=== PATIENT | male | born 1945 | race Caucasian/White ===

== ENCOUNTER 2016-09-21 04:20 | Emergency (ER) | payer MEDICAID, MEDICARE ==
[2016-09-21] MEDS ORDERED: Albuterol/Ipratropium NEB.SOL* Albuterol 2.5 MG/Ipratropium 0.5 MG 3 ML INH ONE (04:44)
[2016-09-21] MEDS ORDERED: methylPREDNISolone 125 MG* 2 ML VIAL IV ONE (04:44)
--- NOTE | 2016-09-21 05:22 | ED ---
Giovani Kam Adam, scribed for Bobby Tucker MD on 09/21/16 at 0441 . Respiratory - HPI Summary HPI Summary: Pt is a 71 year old male presenting with a worsening cough. He states that he has had a cough for the past 3 days which is worse at night. It produces some sputum and it has been causing him to have a sore throat and rib pain. Pt has a nebulizer at home but he has not been using it. He states that he has not used his Breo for the past few days. He has not taken any cough medicine. He denies fever. Pt quit smoking yesterday; he had been smoking approximately 5 cigarettes per week. PMHx includes COPD, HTN, and CAD. - History of Current Complaint Chief Complaint: EDUpperRespComplaint Stated Complaint: COUGH/DIFF BREATHING Hx Obtained From: Patient Onset/Duration: Gradual Onset, Lasting Hours, Still Present Timing: Constant Initial Severity: Moderate Current Severity: Moderate Pain Intensity: 3 Character: Cough (Productive) Sputum Amount: Small Aggravating Factor(s): Nothing Alleviating Factor(s): Nothing Associated Signs and Symptoms: SOB, Chest Pain with Cough, Dyspnea - Allergy/Home Medications Allergies/Adverse Reactions: Allergies Allergy/AdvReac Type Severity Reaction Status Date / Time Zolpidem AdvReac Intermediate Hallucinati Verified 11/06/15 10:23 ons PMH/Surg Hx/FS Hx/Imm Hx Cardiovascular History: Reports: Hx Coronary Artery Disease, Hx Hypertension, Hx Pacemaker/ICD, Other Cardiovascular Problems/Disorders - Ischemia of heart- chronic Respiratory History: Reports: Hx Chronic Obstructive Pulmonary Disease (COPD), Hx Sleep Apnea - HX OF, Other Respiratory Problems/Disorders - COPD GI History: Reports: Hx Gastroesophageal Reflux Disease, Other GI Disorders - RECENT BOWEL SURGERY FOR POLYPS Sensory History: Reports: Hx Cataracts - BILATERAL, Hx Contacts or Glasses - OPTIC ATROPHY BILAT, Hx Glaucoma - BILATERAL, Hx Legally Blind, Hx Macular Degeneration - light sensitive, wears sunglasses most of time, Hx Vision Problem , Hx Hearing Problem Denies: Hx Hearing Aid Opthamlomology History: Reports: Hx Cataracts - BILATERAL, Hx Contacts or Glasses - OPTIC ATROPHY BILAT, Hx Glaucoma - BILATERAL, Hx Legally Blind, Hx Macular Degeneration - light sensitive, wears sunglasses most of time, Hx Vision Problem Neurological History: Reports: Hx Seizures - new onset today 12/22, Other Neuro Impairments/Disorders - alcoholic withdrawl/confusion Psychiatric History: Reports: Hx Anxiety, Hx Depression, Hx Substance Abuse - tobacco, alcohol - Surgical History Surgery Procedure, Year, and Place: Heart cath @ [facility] 10-15-98, Appendectomy, 13 polyps removed. cabg(3 vessel with saphenous vein graft on 09/09/14). cataracts 09/2015 Hx Anesthesia Reactions: No - Immunization History Date of Tetanus Vaccine: None, and doesn't want any Date of Influenza Vaccine: 03/30 Infectious Disease History: No Infectious Disease History: Denies: History Other Infectious Disease, Traveled Outside the [place] in Last 30 Days - Family History Known Family History: Positive: Other - Negative: malignant hyperthermia, anesthesia reaction - Social History Occupation: Disabled Lives: With Family - Male friend Alcohol Use: None Hx Substance Use: No Substance Use Type: Reports: None Hx Tobacco Use: Yes - PREVIOUS Smoking Status (MU): Light Every Day Tobacco Smoker Type: Cigars Amount Used/How Often: 3 a day Have You Smoked in the Last Year: Yes Review of Systems Positive: Sore Throat Positive: Chest Pain - Rib pain associated with cough Positive: Shortness Of Breath, Cough Positive: Myalgia All Other Systems Reviewed And Are Negative: Yes Physical Exam Triage Information Reviewed: Yes Vital Signs On Initial Exam: Initial Vitals Temp Pulse Resp BP Pulse Ox 98.6 F 74 21 152/71 95 09/21/16 04:27 09/21/16 04:27 09/21/16 04:27 09/21/16 04:27 09/21/16 04:27 Vital Signs Reviewed: Yes Appearance: Positive: Well-Appearing, No Pain Distress, Obese Skin: Positive: Warm Eyes: Positive: NOÉ ENT: Positive: Hearing grossly normal Neck: Positive: Supple Respiratory/Lung Sounds: Positive: Breath Sounds Present, Wheezes - bilat diffuse with prolonged expiration Cardiovascular: Positive: RRR Abdomen Description: Positive: Nontender, Soft Bowel Sounds: Positive: Present Musculoskeletal: Positive: Strength/ROM Intact Neurological: Positive: Sensory/Motor Intact Diagnostics - Vital Signs Vital Signs Temp Pulse Resp BP Pulse Ox 09/21/16 04:27 98.6 F 74 21 152/71 95 - Laboratory Result Diagrams: 09/21/16 05:10 09/21/16 05:10 Lab Statement: Any lab studies that have been ordered have been reviewed, and results considered in the medical decision making process. - Radiology CXR Xray Interpretation: No Acute Changes Radiology Interpretation Completed By: ED Physician - Additional Comments Diagnostic Additional Comments: Influenza A (Rapid) - Negative Influenza B (Rapid) - Negative Re-Evaluation - Re-Evaluation First Eval Change: Improved - much less wheezing, feels better Disposition - Diagnoses Provider Diagnoses: COPD (chronic obstructive pulmonary disease) Discharge - Discharge Plan Condition: Improved Disposition: HOME Prescriptions: Albuterol HFA INHALER* [Ventolin HFA Inhaler*] 2 puff INH Q4H #1 mdi predniSONE TAB* [Deltasone TAB*] 40 mg PO DAILY #8 tab The documentation as recorded by the Giovani ghosh Adam accurately reflects the service I personally performed and the decisions made by me, Bobby Tucker MD.
[2016-09-21 05:31] LABS: Hematocrit 33 % (42-52); Hemoglobin 10.7 g/dl (14.0-18.0); Mean Corpuscular HGB Conc 32 g/dl (31-36); Mean Corpuscular Hemoglobin 24 pg (27-31); Mean Corpuscular Volume 76 fL (80-94); Mean Platelet Volume 8 um3 (7.4-10.4); Red Blood Count 4.41 10^6/ul (4.0-5.4); Red Cell Distribution Width 17 % (10.5-15); White Blood Count 6.2 10^3/ul (3.5-10.8)
[2016-09-21 05:50] LABS: BUN/Creatinine Ratio 15.6 (8-20); EGFR African American 70.8 (>60); EGFR Non-African American 55.1 (>60); Globulin 2.8 g/dL (2-4); Potassium 3.8 mmol/L (3.5-5.0); Total Bilirubin 0.6 mg/dL (0.2-1.0); Total Protein 6.8 g/dL (6.4-8.9)
[2016-09-21 06:49] VITALS: BP 142/63
--- NOTE | 2016-09-21 08:13 | RAD ---
INDICATION: 2 days significant coughing with associated rib pain and difficulty breathing. Sore throat, body aches. COMPARISON: May 17, 2016 CT chest. TECHNIQUE: Dual energy PA and routine lateral views of the chest were obtained. REPORT: Elevated lung volumes with both minimal prominence and significant rarefaction of interstitial markings. No alveolar consolidation, focal pulmonary lesion, pleural effusion, pneumothorax. Median sternotomy wires, mediastinal vascular clips, RIGHT atrial and RIGHT ventricular level pacemaker leads. Unremarkable central pulmonary vasculature and mediastinal contours. No rib fracture evident. IMPRESSION: Stigmata of chronic obstructive lung disease and emphysema. No acute cardiopulmonary process evident.
== END 2016-09-21 06:53 | disposition home or self-care (01) ==
LOC: ED 04:20
DX: J44.9 Chronic obstructive pulmonary disease, unspecified (principal); R06.02 Shortness of breath; R07.9 Chest pain, unspecified; R05 Cough; R06.00 Dyspnea, unspecified; F17.210 Nicotine dependence, cigarettes, uncomplicated
CPT/HCPCS: 36415; 71020; 80053; 85025; 87502; 94640; 94760; 99282; A9270-GY; J2930

== ENCOUNTER 2016-11-30 18:57 | Observation (INO) | payer MEDICAID, MEDICARE ==
[2016-11-30 19:55] LABS: Hematocrit 32 % (42-52); Hemoglobin 10.1 g/dl (14.0-18.0); Mean Corpuscular HGB Conc 31 g/dl (31-36); Mean Corpuscular Hemoglobin 23 pg (27-31); Mean Corpuscular Volume 73 fL (80-94); Mean Platelet Volume 8 um3 (7.4-10.4); Red Blood Count 4.41 10^6/ul (4.0-5.4); Red Cell Distribution Width 20 % (10.5-15); White Blood Count 8.5 10^3/ul (3.5-10.8)
[2016-11-30 20:04] LABS: Comments Flag Yes
[2016-11-30 20:05] LABS: Add Diff/Slide Review? Slide Review Added
--- NOTE | 2016-11-30 20:09 | RAD ---
Indication: Cough, shortness of breath. 2 views of the chest including dual energy views of the chest demonstrate no mediastinal shift. Mild cardiomegaly is noted. Lung merritt are clear. Patient is status post transsternal thoracotomy. Pacemaker leads are in place. When compared to previous exam of September 21, 2016 no significant change is noted. IMPRESSION: No active cardiopulmonary disease is noted.
[2016-11-30 20:11] LABS: ALT 20 U/L (7-52); AST 17 U/L (13-39); Albumin 3.8 g/dL (3.2-5.2); Alkaline Phosphatase 80 U/L (34-104); Anion Gap 9 mmol/L (2-11); BUN/Creatinine Ratio 9.5 (8-20); Blood Urea Nitrogen 16 mg/dL (6-24); CO2 Carbon Dioxide 28 mmol/L (22-32); Chloride 100 mmol/L (101-111); Creatine Kinase 132 U/L (10-223); EGFR African American 51.4 (>60); Globulin 3.3 g/dL (2-4); Glucose 115 mg/dL (70-100); Potassium 4.1 mmol/L (3.5-5.0); Sodium 137 mmol/L (133-145); Total Protein 7.1 g/dL (6.4-8.9)
[2016-11-30 20:13] LABS: Troponin I 0.02 ng/mL (<0.04)
[2016-11-30] MEDS ORDERED: Albuterol 2.5 MG/3 ML NEB.SOL* (0.083%) INH ONE (20:28)
[2016-11-30] MEDS ORDERED: methylPREDNISolone 125 MG* 2 ML VIAL IV ONE (20:28)
[2016-11-30 21:30] LABS: C Reactive Protein 60.18 mg/L (< 5.00)
[2016-11-30 21:50] LABS: PCO2 Arterial 30 mmHg (35-45)
--- NOTE | 2016-12-01 00:44 | HP ---
H&P (Free Text) History and Physical: PCP: Rafat Miranda MD Pulmonology: Flako Hopkins MD Date/Time of Evaluation: 12/01/2016 0010 CC: SOB, cough HPI: Mr Bishop is a 71YO male HX COPD followed by Flako Hopkins MD pulmonology who reports 3 days of gradually worsening SOB and chest tightness associated with cough producing brown sputum. He reports subjective F/C, but no N/V/D, chest pain, LE swelling, or other issues. He continues to smoke 1.5-2 PPD cigarettes. Exertion makes his SOB worse and rest & albuterol makes it better. PMedHx CAD/MD/stent/3vCABG paroxysmal AFIB PAOD/RLE stent COPD HTN HLD legally blind OS gout microcytic anemia alcoholism in remission with HX delirium tremens requiring intubation tobacco use disorder Ambulatory Orders Atenolol TAB* [Tenormin TAB* 25 MG] 12.5 mg PO EVERY OTHER DAY 04/07/14 Hydrochlorothiazide TAB* [Hydrodiuril TAB*] 25 mg PO QAM 04/07/14 Indomethacin CAP* [Indocin CAP*] 1 - 2 tab PO TID PRN 04/07/14 Multiple Vitamin [Multivitamins] 1 tab PO QAM 04/07/14 amLODIPine TAB* [Norvasc 5 mg TAB*] 5 mg PO QAM 04/07/14 Budesonide-Formoterol Fumarate [Symbicort 80-4.5 Mcg/Act] 1 puff INH BID Omeprazole CAP* [Prilosec CAP*] 20 mg PO QAM 08/13/14 Amiodarone HCl [Cordarone] 100 mg PO QAM 11/29/14 Lisinopril [Prinivil] 10 mg PO QAM 11/29/14 Paroxetine HCl [Paxil] 20 mg PO QAM 11/29/14 Rivaroxaban TAB(*) [Xarelto (NF)] 15 mg PO 1700 11/29/14 Simvastatin [Zocor] 10 mg PO BEDTIME 11/29/14 Ezetimibe TAB* [Zetia TAB*] 10 mg PO BEDTIME 12/22/14 Nitroglycerin TAB 0.3 MG* 0.3 mg SL Q5M PRN 05/04/15 Brimonidine P 0.15%(NF) [Alphagan P 0.15%(NF)] 1 drop BOTH EYES BID 09/25/15 Dorzolamide 2% OPTH (NF) [Trusopt 2% OPTH (NF)] 1 drop BOTH EYES BID 09/25/15 Travoprost Z 0.004% OPHTH (NF) [Travatan Z 0.004% OPTH (NF)] 1 drop BOTH EYES BEDTIME 09/25/15 Acetaminophen W/ Codeine [Acetaminophen/Codeine 300-15 mg] 1 tab PO Q4HR #20 tab MDD 6 11/06/15 Albuterol HFA INHALER* [Ventolin HFA Inhaler*] 2 puff INH Q4H #1 mdi 09/21/16 Allergies Zolpidem Adverse Reaction (Intermediate, Verified 11/06/15 10:23) Hallucinations Occurred in hospital PSurgHx pacer placement 3vCABG cardiac stent x1 to LAD R hemicolectomy for large benign cecal polyp open appendectomy for rupture RLE stent SocHx: 1.5-2 PPD cigarettes, alcoholism in remission w/ HX DTs requiring intubation, denies recreational drugs; homosexual male lives with his male partner; full code status FamHx: positive for CAD, HTN, HLD, lung CA ROS: as above, otherwise reviewed and all were negative Constitutional: NAD, normally developed, obese white male vitals: Vital Signs Temp 38.2 C 11/30/16 21:16 Pulse 102 11/30/16 21:48 Resp 15 11/30/16 21:48 BP 118/66 11/30/16 21:30 Pulse Ox 98 11/30/16 21:48 Intake & Output 11/30/16 11/30/16 12/01/16 11:59 23:59 11:59 Weight 99.79 kg HEENM: atraumatic; sclera/conjunctiva: ; hearing: clinically intact; oropharynx : clear, mucosa moist Neck: soft tissue: non-tender; thyroid: normal Pulmonary: scant end-inspiratory and moderate mid- to end-expiratory wheeze, fair aeration, no accessory muscle use CV: TR/RR, normal S1S2, no carotid bruit, no jugular venous distention, 2+ B DP/ PT, no edema Abdominal: soft, non-distended, non-tender, no rebound/guarding/rigidity, normoactive bowel sounds, no hepatosplenomegaly or masses, no costovertebral angle tenderness Musculoskeletal: general: grossly intact; gait: dinorah Integumental: normal appearance and texture of exposed skin Psychiatric orientation: AA&O to PPS affect: mildly anxious mood: cooperative eye contact: good content: reliable responses: timely insight: fair Testing: Lab Results 11/30/16 11/30/16 11/30/16 Range/Units 19:45 19:45 19:45 WBC 8.5 (3.5-10.8) 10^3/ul RBC 4.41 (4.0-5.4) 10^6/ul Hgb 10.1 L (14.0-18.0) g/dl Hct 32 L (42-52) % MCV 73 L (80-94) fL MCH 23 L (27-31) pg MCHC 31 (31-36) g/dl RDW 20 H (10.5-15) % Plt Count 219 (150-450) 10^3/ul MPV 8 (7.4-10.4) um3 Neut % (Auto) 73.9 (38-83) % Lymph % (Auto) 11.2 L (25-47) % Storey % (Auto) 13.8 H (1-9) % Eos % (Auto) 0.6 (0-6) % Baso % (Auto) 0.5 (0-2) % Absolute Neuts (auto) 6.3 (1.5-7.7) 10^3/ul Absolute Lymphs (auto) 1.0 (1.0-4.8) 10^3/ul Absolute Monos (auto) 1.2 H (0-0.8) 10^3/ul Absolute Eos (auto) 0 (0-0.6) 10^3/ul Absolute Basos (auto) 0 (0-0.2) 10^3/ul Absolute Nucleated RBC 0 10^3/ul Nucleated RBC % 0 INR (Anticoag Therapy) (0.89-1.11) D-Dimer, Quantitative (Less Than 230) ng/mL Patient Temperature ABG pH (7.35-7.45) ABG pCO2 (35-45) mmHg ABG pO2 (80-100) mmHg ABG HCO3 (19-31) mmol/L ABG O2 Saturation (95-98) % ABG Base Excess (-2.0-2.0) Respiration Rate O2 Delivery Device Ventilator Type Vent Mode FiO2 Inspiratory Time PEEP Pressure Support Pressure Control EPAP IPAP BiPAP Sodium 137 (133-145) mmol/L Potassium 4.1 (3.5-5.0) mmol/L Chloride 100 L (101-111) mmol/L Carbon Dioxide 28 (22-32) mmol/L Anion Gap 9 (2-11) mmol/L BUN 16 (6-24) mg/dL Creatinine 1.69 H (0.67-1.17) mg/dL Est GFR ( Amer) 51.4 (>60) Est GFR (Non-Af Amer) 40.0 (>60) BUN/Creatinine Ratio 9.5 (8-20) Glucose 115 H (70-100) mg/dL Lactic Acid 3.6 H* (0.5-2.0) mmol/L Calcium 9.0 (8.6-10.3) mg/dL Total Bilirubin 0.80 (0.2-1.0) mg/dL AST 17 (13-39) U/L ALT 20 (7-52) U/L Alkaline Phosphatase 80 (34-104) U/L Total Creatine Kinase 132 (10-223) U/L Troponin I 0.02 (<0.04) ng/mL C-Reactive Protein 60.18 H (< 5.00) mg/L B-Natriuretic Peptide ( - 100) pg/mL Total Protein 7.1 (6.4-8.9) g/dL Albumin 3.8 (3.2-5.2) g/dL Globulin 3.3 (2-4) g/dL Albumin/Globulin Ratio 1.2 (1-3) Influenza A (Rapid) (Negative) Influenza B (Rapid) (Negative) 11/30/16 11/30/16 11/30/16 Range/Units 19:45 19:45 20:39 WBC (3.5-10.8) 10^3/ul RBC (4.0-5.4) 10^6/ul Hgb (14.0-18.0) g/dl Hct (42-52) % MCV (80-94) fL MCH (27-31) pg MCHC (31-36) g/dl RDW (10.5-15) % Plt Count (150-450) 10^3/ul MPV (7.4-10.4) um3 Neut % (Auto) (38-83) % Lymph % (Auto) (25-47) % Storey % (Auto) (1-9) % Eos % (Auto) (0-6) % Baso % (Auto) (0-2) % Absolute Neuts (auto) (1.5-7.7) 10^3/ul Absolute Lymphs (auto) (1.0-4.8) 10^3/ul Absolute Monos (auto) (0-0.8) 10^3/ul Absolute Eos (auto) (0-0.6) 10^3/ul Absolute Basos (auto) (0-0.2) 10^3/ul Absolute Nucleated RBC 10^3/ul Nucleated RBC % INR (Anticoag Therapy) 1.43 H (0.89-1.11) D-Dimer, Quantitative < 200 (Less Than 230) ng/mL Patient Temperature ABG pH (7.35-7.45) ABG pCO2 (35-45) mmHg ABG pO2 (80-100) mmHg ABG HCO3 (19-31) mmol/L ABG O2 Saturation (95-98) % ABG Base Excess (-2.0-2.0) Respiration Rate O2 Delivery Device Ventilator Type Vent Mode FiO2 Inspiratory Time PEEP Pressure Support Pressure Control EPAP IPAP BiPAP Sodium (133-145) mmol/L Potassium (3.5-5.0) mmol/L Chloride (101-111) mmol/L Carbon Dioxide (22-32) mmol/L Anion Gap (2-11) mmol/L BUN (6-24) mg/dL Creatinine (0.67-1.17) mg/dL Est GFR ( Amer) (>60) Est GFR (Non-Af Amer) (>60) BUN/Creatinine Ratio (8-20) Glucose (70-100) mg/dL Lactic Acid (0.5-2.0) mmol/L Calcium (8.6-10.3) mg/dL Total Bilirubin (0.2-1.0) mg/dL AST (13-39) U/L ALT (7-52) U/L Alkaline Phosphatase (34-104) U/L Total Creatine Kinase (10-223) U/L Troponin I (<0.04) ng/mL C-Reactive Protein (< 5.00) mg/L B-Natriuretic Peptide 270 H ( - 100) pg/mL Total Protein (6.4-8.9) g/dL Albumin (3.2-5.2) g/dL Globulin (2-4) g/dL Albumin/Globulin Ratio (1-3) Influenza A (Rapid) Negative (Negative) Influenza B (Rapid) Negative (Negative) 11/30/16 Range/Units 21:40 WBC (3.5-10.8) 10^3/ul RBC (4.0-5.4) 10^6/ul Hgb (14.0-18.0) g/dl Hct (42-52) % MCV (80-94) fL MCH (27-31) pg MCHC (31-36) g/dl RDW (10.5-15) % Plt Count (150-450) 10^3/ul MPV (7.4-10.4) um3 Neut % (Auto) (38-83) % Lymph % (Auto) (25-47) % Storey % (Auto) (1-9) % Eos % (Auto) (0-6) % Baso % (Auto) (0-2) % Absolute Neuts (auto) (1.5-7.7) 10^3/ul Absolute Lymphs (auto) (1.0-4.8) 10^3/ul Absolute Monos (auto) (0-0.8) 10^3/ul Absolute Eos (auto) (0-0.6) 10^3/ul Absolute Basos (auto) (0-0.2) 10^3/ul Absolute Nucleated RBC 10^3/ul Nucleated RBC % INR (Anticoag Therapy) (0.89-1.11) D-Dimer, Quantitative (Less Than 230) ng/mL Patient Temperature Not Reportable ABG pH 7.53 H (7.35-7.45) ABG pCO2 30 L (35-45) mmHg ABG pO2 70 L (80-100) mmHg ABG HCO3 27.0 (19-31) mmol/L ABG O2 Saturation 92.9 L (95-98) % ABG Base Excess 2.7 H (-2.0-2.0) Respiration Rate Not Reportable O2 Delivery Device 2l nasal cannula Ventilator Type Not Reportable Vent Mode Not Reportable FiO2 Not Reportable Inspiratory Time Not Reportable PEEP Not Reportable Pressure Support Not Reportable Pressure Control Not Reportable EPAP Not Reportable IPAP Not Reportable BiPAP Not Reportable Sodium (133-145) mmol/L Potassium (3.5-5.0) mmol/L Chloride (101-111) mmol/L Carbon Dioxide (22-32) mmol/L Anion Gap (2-11) mmol/L BUN (6-24) mg/dL Creatinine (0.67-1.17) mg/dL Est GFR ( Amer) (>60) Est GFR (Non-Af Amer) (>60) BUN/Creatinine Ratio (8-20) Glucose (70-100) mg/dL Lactic Acid (0.5-2.0) mmol/L Calcium (8.6-10.3) mg/dL Total Bilirubin (0.2-1.0) mg/dL AST (13-39) U/L ALT (7-52) U/L Alkaline Phosphatase (34-104) U/L Total Creatine Kinase (10-223) U/L Troponin I (<0.04) ng/mL C-Reactive Protein (< 5.00) mg/L B-Natriuretic Peptide ( - 100) pg/mL Total Protein (6.4-8.9) g/dL Albumin (3.2-5.2) g/dL Globulin (2-4) g/dL Albumin/Globulin Ratio (1-3) Influenza A (Rapid) (Negative) Influenza B (Rapid) (Negative) ECG, personally reviewed: sinus LBBB rate 61 CXR, personally reviewed: IMPRESSION: No active cardiopulmonary disease is noted. Impression: 71M presenting with COPD exacerbation DIAGNOSIS & PLAN Primary febrile COPD exacerbation : albuterol nebs : mometasone/formoterol : tiotropium : IV methylpredisolone : IV azithromycin & ceftriaxone : guaifenesin : incentive spirometry : blood & sputum CXs : check urine Legionella & S pneumo antigens : supplemental oxygen : smoking cessation : supportive care Secondary CAD/MD/stent/3vCABG : aspirin paroxysmal AFIB : continue atenolol, amiodarone, & rivaroxaban PAOD/RLE stent : aspirin HTN : continue lisinopril, atenolol, & amlodipine : hold HCTZ HLD : continue simvastatin & ezetimibe microcytic anemia : check anemia labs GERD : continue omeprazole anxiety : continue paroxetine Admission Rational: inpatient for febrile COPD exacerbation not anticipated to adequately improve w/i 48h to allow for discharge DVTp: rivaroxaban Code Status: full HCP: domestic partner, Branden Suggs
[2016-12-01] MEDS ORDERED: Acetaminophen TAB* 325 MG PO PRN (02:01)
[2016-12-01] MEDS ORDERED: Albuterol 2.5 MG/3 ML NEB.SOL* (0.083%) INH PRN ×2 (02:01→09:15)
[2016-12-01] MEDS ORDERED: Melatonin (NF) 3 MG TAB PO PRN (02:03)
[2016-12-01] MEDS ORDERED: Nicotine Inhaler* 10 MG AMP INH PRN (02:03)
[2016-12-01] MEDS ORDERED: oxyCODONE TAB* 5 MG TAB PO PRN (02:03)
[2016-12-01] MEDS ORDERED: Ondansetron INJ* 2 MG/ML VIAL IV PRN (02:03)
[2016-12-01] MEDS ORDERED: Azithromycin IV(*) 500 MG in NS 0.9% 250 ML* 250 ML IVPB SCH (03:00)
[2016-12-01 03:17] LABS: Folate > 20.00 ng/mL (>3.99)
[2016-12-01 03:18] LABS: Vitamin B12 290 pg/mL (180-914)
[2016-12-01 03:19] LABS: Corrected Retic Count 2.1 % (0.5-1.5); Immature Retic Fraction 0.52; Maturation Factor Retic 1.5
[2016-12-01] MEDS: NS 0.9% 1000 ML* 1,000 ML IV SCH ×3 (03:19→21:46)
[2016-12-01] MEDS: cefTRIAXone VIAL(*) 1,000 MG in NS 0.9% 50 ML* 50 ML IVPB SCH (03:19)
[2016-12-01 03:21] LABS: Ferritin < 10.0 ng/mL (24-336)
[2016-12-01] MEDS: DOXYcycline CAP(*) 100 MG PO SCH ×3 (03:21→20:24)
[2016-12-01 03:42] LABS: Iron 31 ug/dL (50-212); Total Iron Binding Capacity 479 mcg/dL (250-450); Transferrin 342 mg/dL (203-362)
[2016-12-01 05:32] LABS: Hematocrit 32 % (42-52); Mean Corpuscular HGB Conc 31 g/dl (31-36); Mean Corpuscular Hemoglobin 23 pg (27-31); Mean Platelet Volume 8 um3 (7.4-10.4); Red Blood Count 4.34 10^6/ul (4.0-5.4); Red Cell Distribution Width 20 % (10.5-15); White Blood Count 6.8 10^3/ul (3.5-10.8)
[2016-12-01 05:38] LABS: Comments Flag Yes; Mean Corpuscular Volume 73 fL (80-94)
[2016-12-01 05:49] LABS: BUN/Creatinine Ratio 11.9 (8-20); Calcium 8.6 mg/dL (8.6-10.3); EGFR African American 67.2 (>60); EGFR Non-African American 52.3 (>60); Potassium 3.4 mmol/L (3.5-5.0)
[2016-12-01] MEDS ORDERED: NS 0.9% 1000 ML* 1,000 ML IV SCH (06:15)
[2016-12-01] MEDS ORDERED: Albuterol 2.5 MG/3 ML NEB.SOL* (0.083%) INH SCH (07:00)
[2016-12-01] MEDS: Mometasone/Formoter 200/5 MDI INH SCH ×2 (07:41→20:48)
[2016-12-01] MEDS: Tiotropium CAP.INH* CAP.INH/18 MCG INH SCH (07:42)
[2016-12-01] MEDS ORDERED: Atenolol TAB* 25 MG PO SCH (09:00)
[2016-12-01] MEDS ORDERED: Spiriva Inhaler DEVICE* 1 EACH DEVICE INH ONE (09:00)
[2016-12-01] MEDS: Omeprazole CAP* 20 MG PO SCH (09:16)
[2016-12-01] MEDS: guaiFENesin ER TAB 600 MG PO SCH ×2 (09:16→20:24)
[2016-12-01] MEDS: PARoxetine HCL TAB* 20 MG PO SCH (09:17)
[2016-12-01] MEDS: Amiodarone TAB* 200 MG PO SCH (09:19)
[2016-12-01] MEDS: Lisinopril TAB* 10 MG PO SCH (09:20)
[2016-12-01] MEDS: Docusate CAP* 100 MG PO SCH ×2 (09:20→20:24)
[2016-12-01] MEDS: amLODIPine TAB* 5 MG PO SCH (09:20)
[2016-12-01] MEDS: Aspirin EC Low Dose* 81 MG TAB.EC PO SCH (09:31)
[2016-12-01] MEDS: Rivaroxaban TAB(*) 20 MG TAB PO SCH (09:41)
--- NOTE | 2016-12-01 11:03 | ED ---
Angie Kam Rebecca, scribed for Marybeth Matute MD on 11/30/16 at 2025 . Respiratory - HPI Summary HPI Summary: Pt is a 71 y/o M who presents to ED accompanied by his partner with a CC of respiratory distress. C/o productive cough, SOB and painful lungs, stating "my lungs hurt." Cough began suddenly 3 days ago and has been constant since onset, with green and brown sputum. SOB began 3 days ago as well, characterized as dyspnea at exertion, present after walking a short distance. Pain in lungs is ranked 9/10. All sx aggravated by exertion, alleviated by nothing. Denies CP, fever. Pt has been using his partner's O2 per Os at home [employer]. PSHx CABG (2014), pacemaker implantation. PMHx DC. PSHx smoking (1.5 PPD - quit 2 days ago). Received a flu shot this year. Sees Dr. Miranda and Dr. Hopkins. - History of Current Complaint Chief Complaint: EDGeneral Stated Complaint: BODY ACHES Time Seen by Provider: 11/30/16 19:36 Hx Obtained From: Patient Onset/Duration: Sudden Onset, Lasting Days - 3 days, Still Present Timing: Constant Initial Severity: Moderate Current Severity: Severe Pain Intensity: 9 Character: Cough (Productive), Dyspnea on Exertion Sputum Amount: Moderate Sputum Color: Green, Brown Aggravating Factor(s): Exertion Alleviating Factor(s): Nothing Associated Signs and Symptoms: SOB - dyspnea at slight exertion - Allergy/Home Medications Allergies/Adverse Reactions: Allergies Allergy/AdvReac Type Severity Reaction Status Date / Time Zolpidem AdvReac Intermediate Hallucinati Verified 11/06/15 10:23 ons PMH/Surg Hx/FS Hx/Imm Hx Cardiovascular History: Reports: Hx Coronary Artery Disease, Hx Hypertension, Hx Pacemaker/ICD, Other Cardiovascular Problems/Disorders Respiratory History: Reports: Hx Chronic Obstructive Pulmonary Disease (COPD), Hx Sleep Apnea GI History: Reports: Hx Gastroesophageal Reflux Disease, Other GI Disorders - RECENT BOWEL SURGERY FOR POLYPS Sensory History: Reports: Hx Cataracts - BILATERAL, Hx Contacts or Glasses - OPTIC ATROPHY BILAT, Hx Glaucoma - BILATERAL, Hx Legally Blind, Hx Macular Degeneration - light sensitive, wears sunglasses most of time, Hx Vision Problem , Hx Hearing Problem Denies: Hx Hearing Aid Opthamlomology History: Reports: Hx Cataracts - BILATERAL, Hx Contacts or Glasses - OPTIC ATROPHY BILAT, Hx Glaucoma - BILATERAL, Hx Legally Blind, Hx Macular Degeneration - light sensitive, wears sunglasses most of time, Hx Vision Problem Neurological History: Reports: Hx Seizures, Other Neuro Impairments/Disorders - alcoholic withdrawl/confusion Psychiatric History: Reports: Hx Anxiety, Hx Depression, Hx Substance Abuse - tobacco, alcohol - Surgical History Surgery Procedure, Year, and Place: Heart cath @ [facility] 10-15-98, Appendectomy, 13 polyps removed. cabg(3 vessel with saphenous vein graft on 09/09/14). cataracts 09/2015 Hx Anesthesia Reactions: No - Immunization History Date of Tetanus Vaccine: None, and doesn't want any Date of Influenza Vaccine: 03/30 Infectious Disease History: Denies: History Other Infectious Disease, Traveled Outside the [place] in Last 30 Days - Family History Known Family History: Positive: Other - Negative: malignant hyperthermia, anesthesia reaction - Social History Alcohol Use: None Alcohol Amount: 5-6 beers a night Hx Substance Use: No Substance Use Type: Reports: None Hx Tobacco Use: Yes - PREVIOUS Smoking Status (MU): Light Every Day Tobacco Smoker Type: Cigars Amount Used/How Often: 3 a day Have You Smoked in the Last Year: Yes Cessation Counseling: Patient Advised to Stop Review of Systems Negative: Fever Negative: Chest Pain Positive: Shortness Of Breath - dyspnea at slight exertion, Cough - productive - green and brown, Other - "painful lungs" - 03/26 Gastrointestinal: Negative Musculoskeletal: Negative Skin: Negative Neurological: Negative Psychological: Normal All Other Systems Reviewed And Are Negative: Yes Physical Exam Triage Information Reviewed: Yes Vital Signs On Initial Exam: Initial Vitals Temp Pulse Resp BP Pulse Ox 99.5 F 92 24 141/74 92 11/30/16 19:07 11/30/16 19:07 11/30/16 19:07 11/30/16 19:07 11/30/16 19:07 Vital Signs Reviewed: Yes Appearance: Positive: No Pain Distress, Well-Nourished, Ill-Appearing - Mild Skin: Positive: Warm, Skin Color Reflects Adequate Perfusion, Dry Eyes: Positive: Conjunctiva Clear ENT: Positive: Normal ENT inspection Neck: Positive: Supple Respiratory/Lung Sounds: Positive: Breath Sounds Present, Decreased Breath Sounds, Rhonchi - Expiratory wheezes throughout, Other - Pacemaker in the LUQ, SOB just sitting up Cardiovascular: Positive: RRR, Other - Pulses normal, brisk capillary refill. Negative: Murmur, Leg Edema Left, Leg Edema Right Abdomen Description: Positive: Nontender, No Organomegaly, Soft Musculoskeletal: Positive: Strength/ROM Intact Neurological: Positive: Alert, Oriented to Person Place, Time, Other - Muscle tone normal Psychiatric: Positive: Normal Diagnostics - Vital Signs Vital Signs Temp Pulse Resp BP Pulse Ox 11/30/16 19:07 99.5 F 92 24 141/74 92 - Laboratory Lab Results: Lab Results 11/30/16 11/30/16 11/30/16 Range/Units 19:45 19:45 19:45 WBC 8.5 (3.5-10.8) 10^3/ul RBC 4.41 (4.0-5.4) 10^6/ul Hgb 10.1 L (14.0-18.0) g/dl Hct 32 L (42-52) % MCV 73 L (80-94) fL MCH 23 L (27-31) pg MCHC 31 (31-36) g/dl RDW 20 H (10.5-15) % Plt Count 219 (150-450) 10^3/ul MPV 8 (7.4-10.4) um3 Neut % (Auto) 73.9 (38-83) % Lymph % (Auto) 11.2 L (25-47) % [place] % (Auto) 13.8 H (1-9) % Eos % (Auto) 0.6 (0-6) % Baso % (Auto) 0.5 (0-2) % Absolute Neuts (auto) 6.3 (1.5-7.7) 10^3/ul Absolute Lymphs (auto) 1.0 (1.0-4.8) 10^3/ul Absolute Monos (auto) 1.2 H (0-0.8) 10^3/ul Absolute Eos (auto) 0 (0-0.6) 10^3/ul Absolute Basos (auto) 0 (0-0.2) 10^3/ul Absolute Nucleated RBC 0 10^3/ul Nucleated RBC % 0 INR (Anticoag Therapy) (0.89-1.11) D-Dimer, Quantitative (Less Than 230) ng/mL Sodium 137 (133-145) mmol/L Potassium 4.1 (3.5-5.0) mmol/L Chloride 100 L (101-111) mmol/L Carbon Dioxide 28 (22-32) mmol/L Anion Gap 9 (2-11) mmol/L BUN 16 (6-24) mg/dL Creatinine 1.69 H (0.67-1.17) mg/dL Est GFR ( Amer) 51.4 (>60) Est GFR (Non-Af Amer) 40.0 (>60) BUN/Creatinine Ratio 9.5 (8-20) Glucose 115 H (70-100) mg/dL Lactic Acid 3.6 H* (0.5-2.0) mmol/L Calcium 9.0 (8.6-10.3) mg/dL Total Bilirubin 0.80 (0.2-1.0) mg/dL AST 17 (13-39) U/L ALT 20 (7-52) U/L Alkaline Phosphatase 80 (34-104) U/L Total Creatine Kinase 132 (10-223) U/L Troponin I 0.02 (<0.04) ng/mL Total Protein 7.1 (6.4-8.9) g/dL Albumin 3.8 (3.2-5.2) g/dL Globulin 3.3 (2-4) g/dL Albumin/Globulin Ratio 1.2 (1-3) / Range/Units 19:45 WBC (3.5-10.8) 10^3/ul RBC (4.0-5.4) 10^6/ul Hgb (14.0-18.0) g/dl Hct (42-52) % MCV (80-94) fL MCH (27-31) pg MCHC (31-36) g/dl RDW (10.5-15) % Plt Count (150-450) 10^3/ul MPV (7.4-10.4) um3 Neut % (Auto) (38-83) % Lymph % (Auto) (25-47) % [place] % (Auto) (1-9) % Eos % (Auto) (0-6) % Baso % (Auto) (0-2) % Absolute Neuts (auto) (1.5-7.7) 10^3/ul Absolute Lymphs (auto) (1.0-4.8) 10^3/ul Absolute Monos (auto) (0-0.8) 10^3/ul Absolute Eos (auto) (0-0.6) 10^3/ul Absolute Basos (auto) (0-0.2) 10^3/ul Absolute Nucleated RBC 10^3/ul Nucleated RBC % INR (Anticoag Therapy) 1.43 H (0.89-1.11) D-Dimer, Quantitative < 200 (Less Than 230) ng/mL Sodium (133-145) mmol/L Potassium (3.5-5.0) mmol/L Chloride (101-111) mmol/L Carbon Dioxide (22-32) mmol/L Anion Gap (2-11) mmol/L BUN (6-24) mg/dL Creatinine (0.67-1.17) mg/dL Est GFR ( Amer) (>60) Est GFR (Non-Af Amer) (>60) BUN/Creatinine Ratio (8-20) Glucose (70-100) mg/dL Lactic Acid (0.5-2.0) mmol/L Calcium (8.6-10.3) mg/dL Total Bilirubin (0.2-1.0) mg/dL AST (13-39) U/L ALT (7-52) U/L Alkaline Phosphatase (34-104) U/L Total Creatine Kinase (10-223) U/L Troponin I (<0.04) ng/mL Total Protein (6.4-8.9) g/dL Albumin (3.2-5.2) g/dL Globulin (2-4) g/dL Albumin/Globulin Ratio (1-3) Result Diagrams: 12/01/16 05:04 12/01/16 05:04 Lab Statement: Any lab studies that have been ordered have been reviewed, and results considered in the medical decision making process. - Radiology CXR Xray Interpretation: No Acute Changes - No active cardiopulmonary disease noted. Radiology Interpretation Completed By: Radiologist - EKG 2027 Cardiac Rate: NL - 90 bpm EKG Rhythm: Sinus Rhythm EKG Interpretation: Normal AV and normal IV conduction time, left axis 5, LBBB EKG Comparison: No Significant Change - no change from EKG on 06/18/2015 Disposition - Course Course Of Treatment: Pt is a 71 y/o M who presents to ED accompanied by his partner c/o productive cough (brown and green), SOB (dyspnea at slight exertion ) and severely painful lungs (9/10) for 3 days. Sx aggravated by exertion, alleviated by nothing. Denies CP, fever. PMHx CAD with DC. PSHx CABG, pacemaker implantation. SHx smoker (1.5 PPD - quit 2 days ago). Pt was counseled on smoking cesation. Pt medications reviewed this visit. Allergies noted. Lactic acid 3.6. BNP 270. CXR reveals no acute findings. Discussed care of pt with Dr. Mora, hospitalist, who accepts pt for admission. Pt will be admitted with a Dx of COPD exacerbation. - Differential Dx - Cardiopulmonary Differential Diagnoses - Cardiopulmonary: Asthma, Bronchitis, Exacerbation Of COPD, Lower Resp Infection, Pulmonary Edema, Pulmonary Embolism - Diagnoses Provider Diagnoses: COPD exacerbation - Physician Notifications Discussed Care Of Patient With: Dr. Mora, hospitalist, who accepts pt for admission. Time Discussed With Above Provider: 21:10 Discharge - Discharge Plan Condition: Good Disposition: ADMITTED TO [facility] documentation as recorded by the Angie ghosh Rebecca accurately reflects the service I personally performed and the decisions made by , Marybeth Matute MD.
--- NOTE | 2016-12-01 17:12 | PN ---
Subjective Date of Service: 12/01/16 Interval History: Pt is feeling much better. He feels much less SOB. He is still coughing up some brown sputum. He states his partner has similar symptoms and is also coughing up brown sputum. He has not done any walking in the hallway. He denies any CP. Objective Active Medications: Acetaminophen (Tylenol Tab*) 650 mg PO Q6H PRN PRN Reason: FEVER/PAIN Albuterol (Ventolin 2.5 Mg/3 Ml Neb.Olivia*) 2.5 mg INH Q2H PRN PRN Reason: SOB/WHEEZING Amiodarone HCl (Cordarone Tab*) 100 mg PO QAM [facility] Last Admin: 12/01/16 09:19 Dose: 100 mg Amlodipine Besylate (Norvasc Tab*) 5 mg PO QAM [facility] Last Admin: 12/01/16 09:20 Dose: 5 mg Aspirin (Aspirin Ec Low Dose*) 81 mg PO DAILY [facility] Last Admin: 12/01/16 09:31 Dose: 81 mg Atenolol (Tenormin Tab*) 12.5 mg PO EVERY OTHER DAY [facility] Last Admin: 12/01/16 09:17 Dose: 12.5 mg Atorvastatin Calcium (Lipitor*) 5 mg PO BEDTIME [facility] Docusate Sodium (Colace Cap*) 200 mg PO BID [facility] Last Admin: 12/01/16 09:20 Dose: 200 mg Doxycycline Hyclate (Vibramycin Cap(*)) 100 mg PO BID [facility] Last Admin: 12/01/16 09:16 Dose: 100 mg Guaifenesin (Mucinex*) 1,200 mg PO BID [facility] Last Admin: 12/01/16 09:16 Dose: 1,200 mg Sodium Chloride (Ns 0.9% 1000 Ml*) 1,000 mls @ 75 mls/hr IV PER RATE [facility] Last Admin: 12/01/16 08:25 Dose: 75 mls/hr Ceftriaxone Sodium 1,000 mg/ (Sodium Chloride) 50 mls @ 200 mls/hr IVPB Q24H [facility] Last Admin: 12/01/16 03:19 Dose: 200 mls/hr Latanoprost (Xalatan 0.005%*) 1 drop BOTH EYES BEDTIME [facility] PRN Reason: Protocol Lisinopril (Prinivil Tab*) 10 mg PO QAM [facility] Last Admin: 12/01/16 09:20 Dose: 10 mg Melatonin (Melatonin (Nf)) 3 mg PO BEDTIME PRN; Protocol PRN Reason: Sleep Methylprednisolone Sodium Succinate (Solu-Medrol 40 Mg) 40 mg IV Q8H [facility] Mometasone Furoate/Formoterol Fumar (Dulera 200/5 Mdi*) 2 puff INH BID [facility] Last Admin: 12/01/16 07:41 Dose: 2 puff Nicotine (Nicotine Inhaler*) 10 mg INH Q2H PRN PRN Reason: CRAVING Omeprazole (Prilosec Cap*) 20 mg PO QAM [facility] Last Admin: 12/01/16 09:16 Dose: 20 mg Ondansetron HCl (Zofran Inj*) 4 mg IV Q6H PRN PRN Reason: NAUSEA Oxycodone HCl (Roxycodone Tab*) 5 mg PO Q4H PRN PRN Reason: PAIN Paroxetine HCl (Paxil Tab*) 20 mg PO QAM [facility] Last Admin: 12/01/16 09:17 Dose: 20 mg Rivaroxaban (Xarelto (*)) 20 mg PO 0800 [facility] Last Admin: 12/01/16 09:41 Dose: 20 mg Tiotropium Cut Off (Spiriva Cap.Inh*) 1 cap INH DAILY [facility] Last Admin: 12/01/16 07:42 Dose: 1 inh Vital Signs 12/01/16 12/01/16 12/01/16 04:00 07:13 09:01 Temperature 98.2 F 97.9 F Pulse Rate 115 88 84 Respiratory 20 18 16 Rate Blood Pressure 153/70 147/69 (mmHg) O2 Sat by Pulse 96 96 97 Oximetry 12/01/16 15:31 Temperature 97.3 F Pulse Rate 73 Respiratory 20 Rate Blood Pressure 129/61 (mmHg) O2 Sat by Pulse 100 Oximetry Oxygen Devices in Use Now: None Appearance: Elderly male lying in bed, NAD Eyes: No Scleral Icterus Ears/Nose/Mouth/Throat: Mucous Membranes Moist Respiratory: Symmetrical Chest Expansion and Respiratory Effort, Clear to Auscultation - diminished breath sounds in all lung merritt Cardiovascular: NL Sounds; No Murmurs; No JVD, RRR, No Edema Abdominal: NL Sounds; No Tenderness; No Distention Extremities: No Clubbing, Cyanosis Skin: No Rash or Ulcers, No Nodules or Sclerosis Neurological: Alert and Oriented x 3 Result Diagrams: 12/01/16 05:04 12/01/16 05:04 Additional Lab and Data: Lab Results 11/30/16 11/30/16 11/30/16 Range/Units 19:45 19:45 19:45 WBC 8.5 (3.5-10.8) 10^3/ul RBC 4.41 (4.0-5.4) 10^6/ul Hgb 10.1 L (14.0-18.0) g/dl Hct 32 L (42-52) % MCV 73 L (80-94) fL MCH 23 L (27-31) pg MCHC 31 (31-36) g/dl RDW 20 H (10.5-15) % Plt Count 219 (150-450) 10^3/ul MPV 8 (7.4-10.4) um3 Neut % (Auto) 73.9 (38-83) % Lymph % (Auto) 11.2 L (25-47) % [place] % (Auto) 13.8 H (1-9) % Eos % (Auto) 0.6 (0-6) % Baso % (Auto) 0.5 (0-2) % Absolute Neuts (auto) 6.3 (1.5-7.7) 10^3/ul Absolute Lymphs (auto) 1.0 (1.0-4.8) 10^3/ul Absolute Monos (auto) 1.2 H (0-0.8) 10^3/ul Absolute Eos (auto) 0 (0-0.6) 10^3/ul Absolute Basos (auto) 0 (0-0.2) 10^3/ul Absolute Nucleated RBC 0 10^3/ul Nucleated RBC % 0 INR (Anticoag Therapy) (0.89-1.11) D-Dimer, Quantitative (Less Than 230) ng/mL Sodium 137 (133-145) mmol/L Potassium 4.1 (3.5-5.0) mmol/L Chloride 100 L (101-111) mmol/L Carbon Dioxide 28 (22-32) mmol/L Anion Gap 9 (2-11) mmol/L BUN 16 (6-24) mg/dL Creatinine 1.69 H (0.67-1.17) mg/dL Est GFR ( Amer) 51.4 (>60) Est GFR (Non-Af Amer) 40.0 (>60) BUN/Creatinine Ratio 9.5 (8-20) Glucose 115 H (70-100) mg/dL Lactic Acid 3.6 H* (0.5-2.0) mmol/L Calcium 9.0 (8.6-10.3) mg/dL Total Bilirubin 0.80 (0.2-1.0) mg/dL AST 17 (13-39) U/L ALT 20 (7-52) U/L Alkaline Phosphatase 80 (34-104) U/L Total Creatine Kinase 132 (10-223) U/L Troponin I 0.02 (<0.04) ng/mL Total Protein 7.1 (6.4-8.9) g/dL Albumin 3.8 (3.2-5.2) g/dL Globulin 3.3 (2-4) g/dL Albumin/Globulin Ratio 1.2 (1-3) // Range/Units 19:45 WBC (3.5-10.8) 10^3/ul RBC (4.0-5.4) 10^6/ul Hgb (14.0-18.0) g/dl Hct (42-52) % MCV (80-94) fL MCH (27-31) pg MCHC (31-36) g/dl RDW (10.5-15) % Plt Count (150-450) 10^3/ul MPV (7.4-10.4) um3 Neut % (Auto) (38-83) % Lymph % (Auto) (25-47) % [place] % (Auto) (1-9) % Eos % (Auto) (0-6) % Baso % (Auto) (0-2) % Absolute Neuts (auto) (1.5-7.7) 10^3/ul Absolute Lymphs (auto) (1.0-4.8) 10^3/ul Absolute Monos (auto) (0-0.8) 10^3/ul Absolute Eos (auto) (0-0.6) 10^3/ul Absolute Basos (auto) (0-0.2) 10^3/ul Absolute Nucleated RBC 10^3/ul Nucleated RBC % INR (Anticoag Therapy) 1.43 H (0.89-1.11) D-Dimer, Quantitative < 200 (Less Than 230) ng/mL Sodium (133-145) mmol/L Potassium (3.5-5.0) mmol/L Chloride (101-111) mmol/L Carbon Dioxide (22-32) mmol/L Anion Gap (2-11) mmol/L BUN (6-24) mg/dL Creatinine (0.67-1.17) mg/dL Est GFR ( Amer) (>60) Est GFR (Non-Af Amer) (>60) BUN/Creatinine Ratio (8-20) Glucose (70-100) mg/dL Lactic Acid (0.5-2.0) mmol/L Calcium (8.6-10.3) mg/dL Total Bilirubin (0.2-1.0) mg/dL AST (13-39) U/L ALT (7-52) U/L Alkaline Phosphatase (34-104) U/L Total Creatine Kinase (10-223) U/L Troponin I (<0.04) ng/mL Total Protein (6.4-8.9) g/dL Albumin (3.2-5.2) g/dL Globulin (2-4) g/dL Albumin/Globulin Ratio (1-3) Microbiology and Other Data: Microbiology 12/01/16 08:00 Gram Stain - Final Sputum 12/01/16 03:55 Legionella Urinary Antigen - Final Urine Negative Legionella Streptococcus pneumoniae Ag Screen - Final Negative S. pneumo Antigen Assess/Plan/Problems-Billing Mr Bishop is a 71 yo M who has a h/o COPD, ongoing tobacco abuse, CAD, pAF, HTN , HLD and peripheral arterial disease who presented to the ER with c/o SOB and cough and was admitted for treatment of a COPD exacerbation. - Patient Problems (1) COPD exacerbation Current Visit: Yes Status: Acute Code(s): J44.1 - CHRONIC OBSTRUCTIVE PULMONARY DISEASE W (ACUTE) EXACERBATION SNOMED Code(s): 916889870 Comment: The patient has improved quite rapidly. I believe he will be ready for d/c home tomorrow if he continues to improve at this pace. He has no wheezing on exam at this time. No crackles. Will continue doxycyline and ceftriaxone for now. Continue solumedrol and nebs. Will try to get a sputum sample though I suspect he likely has a viral bronchitis that triggered the COPD exacerbation. (2) Afib Current Visit: Yes Status: Acute Onset Date: 09/10/14 Code(s): I48.91 - UNSPECIFIED ATRIAL FIBRILLATION SNOMED Code(s): 56168202 Comment: Sounded regular on exam. Continue amiodarone and xarelto. (3) CAD (coronary artery disease) Current Visit: Yes Status: Acute Code(s): I25.10 - ATHSCL HEART DISEASE OF [place] CORONARY ARTERY W/O ANG PCTRS SNOMED Code(s): 40712921 Comment: No c/o chest pain at this time. Continue home medication regimen. (4) Tobacco abuse Current Visit: No Status: Acute Priority: High Code(s): Z72.0 - TOBACCO USE SNOMED Code(s): 896975708 Comment: Pt continues to smoke heavily. Encourage smoking cessation. (5) DVT prophylaxis Current Visit: Yes Status: Acute Code(s): BLS9057 - SNOMED Code(s): 659847050 Comment: [place] (6) Full code status Current Visit: Yes Status: Acute Code(s): Z78.9 - OTHER SPECIFIED HEALTH STATUS SNOMED Code(s): 592555705
[2016-12-01] MEDS ORDERED: Latanoprost 0.005%* 2.5 ml BTL BOTH EYES SCH (21:00)
[2016-12-01] MEDS ORDERED: Atorvastatin* 10 MG TAB PO SCH (21:00)
[2016-12-02] MEDS: cefTRIAXone VIAL(*) 1,000 MG in NS 0.9% 50 ML* 50 ML IVPB SCH (02:48)
[2016-12-02] MEDS: Tiotropium CAP.INH* CAP.INH/18 MCG INH SCH (07:22)
[2016-12-02] MEDS: Mometasone/Formoter 200/5 MDI INH SCH (07:22)
[2016-12-02 07:45] VITALS: BP 140/73
[2016-12-02] MEDS: Docusate CAP* 100 MG PO SCH ×2 (08:13→08:19)
[2016-12-02] MEDS: Amiodarone TAB* 200 MG PO SCH (08:13)
[2016-12-02] MEDS: Aspirin EC Low Dose* 81 MG TAB.EC PO SCH (08:13)
[2016-12-02] MEDS: guaiFENesin ER TAB 600 MG PO SCH (08:14)
[2016-12-02] MEDS: DOXYcycline CAP(*) 100 MG PO SCH (08:14)
[2016-12-02] MEDS: PARoxetine HCL TAB* 20 MG PO SCH (08:15)
[2016-12-02] MEDS: amLODIPine TAB* 5 MG PO SCH (08:15)
[2016-12-02] MEDS: Omeprazole CAP* 20 MG PO SCH (08:15)
[2016-12-02] MEDS: Lisinopril TAB* 10 MG PO SCH (08:15)
[2016-12-02] MEDS: Rivaroxaban TAB(*) 20 MG TAB PO SCH (08:16)
[2016-12-02] MEDS ORDERED: methylPREDNISolone SOD 40 MG* 1 ML VIAL IV SCH (09:00)
--- NOTE | 2016-12-02 12:34 | PN ---
Subjective Date of Service: 12/02/16 Interval History: Pt is feeling well. He has no SOB at rest. No significant cough. He has been walking in the fields without any difficulty. He wants to go home. Objective Active Medications: Acetaminophen (Tylenol Tab*) 650 mg PO Q6H PRN PRN Reason: FEVER/PAIN Albuterol (Ventolin 2.5 Mg/3 Ml Neb.Olivia*) 2.5 mg INH Q2H PRN PRN Reason: SOB/WHEEZING Amiodarone HCl (Cordarone Tab*) 100 mg PO QAM [facility] Last Admin: 12/02/16 08:13 Dose: 100 mg Amlodipine Besylate (Norvasc Tab*) 5 mg PO QAM [facility] Last Admin: 12/02/16 08:15 Dose: 5 mg Aspirin (Aspirin Ec Low Dose*) 81 mg PO DAILY [facility] Last Admin: 12/02/16 08:13 Dose: 81 mg Atenolol (Tenormin Tab*) 12.5 mg PO EVERY OTHER DAY [facility] Last Admin: 12/01/16 09:17 Dose: 12.5 mg Atorvastatin Calcium (Lipitor*) 5 mg PO BEDTIME [facility] Last Admin: 12/01/16 20:24 Dose: 5 mg Docusate Sodium (Colace Cap*) 200 mg PO BID [facility] Last Admin: 12/02/16 08:19 Dose: Not Given Doxycycline Hyclate (Vibramycin Cap(*)) 100 mg PO BID [facility] Last Admin: 12/02/16 08:14 Dose: 100 mg Guaifenesin (Mucinex*) 1,200 mg PO BID [facility] Last Admin: 12/02/16 08:14 Dose: 1,200 mg Sodium Chloride (Ns 0.9% 1000 Ml*) 1,000 mls @ 75 mls/hr IV PER RATE [facility] Last Admin: 12/01/16 21:46 Dose: 75 mls/hr Ceftriaxone Sodium 1,000 mg/ (Sodium Chloride) 50 mls @ 200 mls/hr IVPB Q24H [facility] Last Admin: 12/02/16 02:48 Dose: 200 mls/hr Latanoprost (Xalatan 0.005%*) 1 drop BOTH EYES BEDTIME [facility] PRN Reason: Protocol Last Admin: 12/01/16 20:24 Dose: 1 drop Lisinopril (Prinivil Tab*) 10 mg PO QAM [facility] Last Admin: 12/02/16 08:15 Dose: 10 mg Melatonin (Melatonin (Nf)) 3 mg PO BEDTIME PRN; Protocol PRN Reason: Sleep Methylprednisolone Sodium Succinate (Solu-Medrol 40 Mg) 40 mg IV Q8H [facility] Last Admin: 12/02/16 08:13 Dose: 40 mg Mometasone Furoate/Formoterol Fumar (Dulera 200/5 Mdi*) 2 puff INH BID [facility] Last Admin: 12/02/16 07:22 Dose: 2 puff Nicotine (Nicotine Inhaler*) 10 mg INH Q2H PRN PRN Reason: CRAVING Omeprazole ([facility]ilosec Cap*) [facility] Last Admin: 12/02/16 08:15 Dose: 20 mg Ondansetron HCl (Zofran Inj*) 4 mg IV Q6H PRN PRN Reason: NAUSEA Oxycodone HCl (Roxycodone Tab*) 5 mg PO Q4H PRN PRN Reason: PAIN Paroxetine HCl (Paxil Tab*) 20 mg PO [facility] Last Admin: 12/02/16 08:15 Dose: 20 mg Rivaroxaban (Xarelto (*)) 20 mg PO 0800 [facility] Last Admin: 12/02/16 08:16 Dose: 20 mg Tiotropium [place] (Spiriva Cap.Inh*) 1 cap INH DAILY [facility] Last Admin: 12/02/16 07:22 Dose: 1 inh Vital Signs 12/01/16 12/01/16 12/01/16 15:31 19:28 20:00 Temperature 97.3 F 97.6 F Pulse Rate 73 80 Respiratory 20 20 18 Rate Blood Pressure 129/61 121/62 (mmHg) O2 Sat by Pulse 100 96 Oximetry 12/01/16 12/02/16 12/02/16 23:27 03:32 07:08 Temperature 97.9 F 98.1 F 97.7 F Pulse Rate 70 95 68 Respiratory 20 20 22 Rate Blood Pressure 128/52 110/61 140/73 (mmHg) O2 Sat by Pulse 97 95 97 Oximetry 12/02/16 07:46 Temperature Pulse Rate Respiratory 20 Rate Blood Pressure (mmHg) O2 Sat by Pulse 97 Oximetry Oxygen Devices in Use Now: None Appearance: Elderly male sitting on the edge of the bed, NAD Eyes: No Scleral Icterus Ears/Nose/Mouth/Throat: Mucous Membranes Moist Respiratory: Symmetrical Chest Expansion and Respiratory Effort, Clear to Auscultation - slightly decreased breath sounds in all lung merritt Cardiovascular: NL Sounds; No Murmurs; No JVD, RRR, No Edema Abdominal: NL Sounds; No Tenderness; No Distention Extremities: No Clubbing, Cyanosis Skin: No Rash or Ulcers, No Nodules or Sclerosis Neurological: Alert and Oriented x 3 Result Diagrams: 12/01/16 05:04 12/01/16 05:04 Additional Lab and Data: Lab Results 11/30/16 11/30/16 11/30/16 Range/Units 19:45 19:45 19:45 WBC 8.5 (3.5-10.8) 10^3/ul RBC 4.41 (4.0-5.4) 10^6/ul Hgb 10.1 L (14.0-18.0) g/dl Hct 32 L (42-52) % MCV 73 L (80-94) fL MCH 23 L (27-31) pg MCHC 31 (31-36) g/dl RDW 20 H (10.5-15) % Plt Count 219 (150-450) 10^3/ul MPV 8 (7.4-10.4) um3 Neut % (Auto) 73.9 (38-83) % Lymph % (Auto) 11.2 L (25-47) % [place] % (Auto) 13.8 H (1-9) % Eos % (Auto) 0.6 (0-6) % Baso % (Auto) 0.5 (0-2) % Absolute Neuts (auto) 6.3 (1.5-7.7) 10^3/ul Absolute Lymphs (auto) 1.0 (1.0-4.8) 10^3/ul Absolute Monos (auto) 1.2 H (0-0.8) 10^3/ul Absolute Eos (auto) 0 (0-0.6) 10^3/ul Absolute Basos (auto) 0 (0-0.2) 10^3/ul Absolute Nucleated RBC 0 10^3/ul Nucleated RBC % 0 INR (Anticoag Therapy) (0.89-1.11) D-Dimer, Quantitative (Less Than 230) ng/mL Sodium 137 (133-145) mmol/L Potassium 4.1 (3.5-5.0) mmol/L Chloride 100 L (101-111) mmol/L Carbon Dioxide 28 (22-32) mmol/L Anion Gap 9 (2-11) mmol/L BUN 16 (6-24) mg/dL Creatinine 1.69 H (0.67-1.17) mg/dL Est GFR ( Amer) 51.4 (>60) Est GFR (Non-Af Amer) 40.0 (>60) BUN/Creatinine Ratio 9.5 (8-20) Glucose 115 H (70-100) mg/dL Lactic Acid 3.6 H* (0.5-2.0) mmol/L Calcium 9.0 (8.6-10.3) mg/dL Total Bilirubin 0.80 (0.2-1.0) mg/dL AST 17 (13-39) U/L ALT 20 (7-52) U/L Alkaline Phosphatase 80 (34-104) U/L Total Creatine Kinase 132 (10-223) U/L Troponin I 0.02 (<0.04) ng/mL Total Protein 7.1 (6.4-8.9) g/dL Albumin 3.8 (3.2-5.2) g/dL Globulin 3.3 (2-4) g/dL Albumin/Globulin Ratio 1.2 (1-3) / Range/Units 19:45 WBC (3.5-10.8) 10^3/ul RBC (4.0-5.4) 10^6/ul Hgb (14.0-18.0) g/dl Hct (42-52) % MCV (80-94) fL MCH (27-31) pg MCHC (31-36) g/dl RDW (10.5-15) % Plt Count (150-450) 10^3/ul MPV (7.4-10.4) um3 Neut % (Auto) (38-83) % Lymph % (Auto) (25-47) % [place] % (Auto) (1-9) % Eos % (Auto) (0-6) % Baso % (Auto) (0-2) % Absolute Neuts (auto) (1.5-7.7) 10^3/ul Absolute Lymphs (auto) (1.0-4.8) 10^3/ul Absolute Monos (auto) (0-0.8) 10^3/ul Absolute Eos (auto) (0-0.6) 10^3/ul Absolute Basos (auto) (0-0.2) 10^3/ul Absolute Nucleated RBC 10^3/ul Nucleated RBC % INR (Anticoag Therapy) 1.43 H (0.89-1.11) D-Dimer, Quantitative < 200 (Less Than 230) ng/mL Sodium (133-145) mmol/L Potassium (3.5-5.0) mmol/L Chloride (101-111) mmol/L Carbon Dioxide (22-32) mmol/L Anion Gap (2-11) mmol/L BUN (6-24) mg/dL Creatinine (0.67-1.17) mg/dL Est GFR ( Amer) (>60) Est GFR (Non-Af Amer) (>60) BUN/Creatinine Ratio (8-20) Glucose (70-100) mg/dL Lactic Acid (0.5-2.0) mmol/L Calcium (8.6-10.3) mg/dL Total Bilirubin (0.2-1.0) mg/dL AST (13-39) U/L ALT (7-52) U/L Alkaline Phosphatase (34-104) U/L Total Creatine Kinase (10-223) U/L Troponin I (<0.04) ng/mL Total Protein (6.4-8.9) g/dL Albumin (3.2-5.2) g/dL Globulin (2-4) g/dL Albumin/Globulin Ratio (1-3) Microbiology and Other Data: Microbiology 12/01/16 08:00 Gram Stain - Final Sputum 12/01/16 03:55 Legionella Urinary Antigen - Final Urine Negative Legionella Streptococcus pneumoniae Ag Screen - Final Negative S. pneumo Antigen Assess/Plan/Problems-Billing Mr Bishpo is a 71 yo M who has a h/o COPD, ongoing tobacco abuse, CAD, pAF, HTN , HLD and peripheral arterial disease who presented to the ER with c/o SOB and cough and was admitted for treatment of a COPD exacerbation. - Patient Problems (1) COPD exacerbation Current Visit: Yes Status: Acute Code(s): J44.1 - CHRONIC OBSTRUCTIVE PULMONARY DISEASE W (ACUTE) EXACERBATION SNOMED Code(s): 321342766 Comment: The patient has improved quite rapidly-he feels ready to go home. No wheezing on exam. He will continue on doxycycline on d/c and prednisone. (2) Afib Current Visit: Yes Status: Acute Onset Date: 09/10/14 Code(s): I48.91 - UNSPECIFIED ATRIAL FIBRILLATION SNOMED Code(s): 36843036 Comment: Sounded regular on exam. Continue amiodarone and xarelto. (3) CAD (coronary artery disease) Current Visit: Yes Status: Acute Code(s): I25.10 - ATHSCL HEART DISEASE OF [place] CORONARY ARTERY W/O ANG PCTRS SNOMED Code(s): 27503808 Comment: No c/o chest pain at this time. Continue home medication regimen. (4) Tobacco abuse Current Visit: Yes Status: Acute Priority: High Code(s): Z72.0 - TOBACCO USE SNOMED Code(s): 764292121 Comment: 5 minutes of smoking cessation education provided to the patient. [facility] smokers quitline information provided to the patient. (5) DVT prophylaxis Current Visit: Yes Status: Acute Code(s): MTV3234 - SNOMED Code(s): 458818690 Comment: [place] (6) Full code status Current Visit: Yes Status: Acute Code(s): Z78.9 - OTHER SPECIFIED HEALTH STATUS SNOMED Code(s): 900664300 Status and Disposition: d/c home
--- NOTE | 2016-12-03 07:43 | DS ---
DISCHARGE SUMMARY: DATE OF ADMISSION: 12/01/16 DATE OF DISCHARGE: 12/02/16 PRIMARY CARE PROVIDER: Dr. Miranda. SALESFORCE DEVELOPER: Dr. Hopkins. PRINCIPAL DIAGNOSIS: Chronic obstructive pulmonary disease exacerbation. SECONDARY DIAGNOSES: 1. Coronary artery disease. 2. Paroxysmal atrial fibrillation. 3. Peripheral arterial disease. 4. Hypertension. 5. Hyperlipidemia. 6. Gout. 7. Tobacco abuse. DISCHARGE MEDICATIONS: 1. Symbicort 80/4.5 one puff inhaled twice daily. 2. Tylenol with Codeine 300/15 one tab p.o. q.4 hours p.r.n. pain. 3. Indomethacin 1 to 2 tabs p.o. t.i.d. p.r.n. pain. 4. Albuterol 2 puffs inhaled q.4 hours p.r.n. shortness of breath. 5. Hydrochlorothiazide 25 mg p.o. daily. 6. Atenolol 12.5 mg p.o. every other day. 7. Amiodarone 100 mg p.o. daily. 8. Paxil 20 mg p.o. daily. 9. Omeprazole 20 mg p.o. daily. 10. Nitroglycerin 0.3 mg SL q.5 minutes p.r.n. chest pain. 11. Multivitamin 1 tab p.o. daily. 12. Lisinopril 10 mg p.o. daily. 13. Amlodipine 5 mg p.o. daily. 14. Travatan Z 1 drop to both eyes at bedtime. 15. Zocor 10 mg p.o. q.h.s. 16. Xarelto 15 mg p.o. daily. 17. Zetia 10 mg p.o. q.h.s. 18. Trusopt 1 drop to both eyes twice daily. 19. Alphagan P 1 drop to both eyes twice daily. 20. Prednisone 20 mg p.o. daily x 5 days. 21. Doxycycline 100 mg p.o. b.i.d. x5 days. HOSPITAL COURSE: Mr. Bishop is a 71-year-old male with a known history of COPD , who presented to the emergency room with complaints of shortness of breath and cough. The patient was admitted for COPD exacerbation. The patient improved much quicker than expected with steroids and antibiotic therapy. The patient has been coughing up some brownish colored sputum and states that his partner has been as well. I suspect the patient has a viral bronchitis that likely led to his COPD exacerbation. The patient will continue on doxycycline 100 mg p.o. twice daily x5 more days and prednisone 20 mg p.o. daily x5 days. The patient should follow up with Dr. Hopkins for further management of his ongoing COPD. At this point, the patient is felt to be stable for discharge home. FOLLOWUP CONCERNS: The patient is being discharged home today, 12/02/16. ACTIVITY LEVEL: As tolerated. DIET: Low fat. CONDITION ON DISCHARGE: Stable. DISCHARGE FOLLOWUP: The patient should follow up with Dr. Miranda in the next 4 to 7 days. TIME SPENT: Twenty-five minutes was spent discharging this patient. CC: Dr. Miranda * [id number]/[facility] #: [id number] MTDD
== END 2016-12-02 14:00 | disposition home or self-care (01) ==
LOC: ED 18:57 → MED 12-01 00:50 → INTOOBSV 12-01 00:50
PROVIDERS: ADMIT Hospitalist; ATTEND Hospitalist
DX: J44.1 Chronic obstructive pulmonary disease with (acute) exacerbation (principal); I48.0 Paroxysmal atrial fibrillation; Z79.01 Long term (current) use of anticoagulants; I25.10 Atherosclerotic heart disease of native coronary artery without angina pectoris; I10 Essential (primary) hypertension; E78.5 Hyperlipidemia, unspecified; M10.9 Gout, unspecified; Z79.899 Other long term (current) drug therapy; Z88.8 Allergy status to other drugs, medicaments and biological substances; Z95.0 Presence of cardiac pacemaker; Z95.5 Presence of coronary angioplasty implant and graft; F17.210 Nicotine dependence, cigarettes, uncomplicated; I44.7 Left bundle-branch block, unspecified
CPT/HCPCS: 36415; 36600; 71020; 80048; 80053; 82550; 82607; 82728; 82746; 82803; 83540; 83550; 83605; 83615; 83880; 84484; 85025; 85045; 85379; 85610; 86140; 87040; 87070; 87077; 87205; 87502; 87899; 93005; 94640; 94660; 94760; 96374; 96375; 96376; 99284; 99406; A9270-GY; G0378; J0696; J2920; J2930

== ENCOUNTER 2017-11-16 10:42 | Day surgery (SDC) | payer MEDICARE ==
[~2017-11-16 10:42] MED LIST: Buffered Lidocaine 0.9% SYRIN* 5 ML/SYR SYRINGE INTRADERM ONE; Famotidine TAB* 20 MG PO ONE
[2017-11-16] MEDS ORDERED: Famotidine TAB* 20 MG ONE (10:44)
[2017-11-16] MEDS ORDERED: Lidocaine 2% VISCOUS* 15 ML UDC ONE (12:41)
[2017-11-16] MEDS ORDERED: Lidocaine 4% TOPICAL* 50 ML TOP.SOLN ONE (12:41)
[2017-11-16] MEDS ORDERED: Lidocaine 2% PF * 5 ML VIAL ONE (12:44)
[2017-11-16] MEDS ORDERED: Ondansetron INJ* 2 MG/ML VIAL ONE (12:44)
[2017-11-16] MEDS ORDERED: Propofol* 10 MG/ML 20 ML BTL IV PUSH ONE (12:44)
[2017-11-16] MEDS ORDERED: Dexamethasone IV* 4 MG/ML 1 ML (4 MG) ONE (12:44)
[2017-11-16] MEDS ORDERED: KETAMINE HCL* 50 MG/ML 10 ML VIAL ONE (12:44)
[2017-11-16] MEDS ORDERED: fentaNYL* 50 MCG/ML 2 ML VIAL (100 MCG VIAL) ONE (12:44)
[2017-11-16] MEDS ORDERED: Midazolam* 1 MG/ML 5 ML VIAL (5 MG) ONE (12:45)
[2017-11-16] MEDS ORDERED: Levalbuterol 0.63MG/3ML NEB* UNIT OF USE INH ONE (14:25)
[2017-11-16] MEDS ORDERED: Ondansetron INJ* 2 MG/ML VIAL IV PRN (14:28)
[2017-11-16] MEDS ORDERED: Naloxone* 0.4 MG/ML 1 ML VIAL IV PRN (14:28)
[2017-11-16] MEDS ORDERED: Levalbuterol 0.63MG/3ML NEB* UNIT OF USE INH PRN (14:28)
[2017-11-16 15:19] VITALS: BP 120/67
--- NOTE | 2017-11-16 15:52 | PRO ---
CC: Dr. Vinnie Miranda * DATE OF PROCEDURE: 11/16/2017 - [facility] REFERRING PHYSICIAN: Dr. Vinnie Miranda. PROCEDURE PERFORMED: Colonoscopy to ileal colic anastomosis and jumbo biopsies. PREOPERATIVE DIAGNOSES: Naairkf-zpzx-zwlc-old male with a personal history of multiple colic polyps, status post right hemicolectomy in 2015 for large right- sided polyp. The patient does have a history of cardiac issues and does have a pacemaker as well as stent placement. He has been off his Xarelto for three days. Recently diagnosed iron deficiency anemia. POSTOPERATIVE DIAGNOSES: 1. Healthy-appearing anastomosis, intubation of ileum which is normal. Sutures noted. 2. 5 mm polyp of the distal sigmoid colon, status post jumbo biopsy resection with complete resection and retrieval. 3. 5 mm polyp in the rectum, status post jumbo biopsy resection with complete resection and retrieval. 4. Prominent internal hemorrhoids noted on direct and retroflex view. PROCEDURE MEDICATIONS: Per anesthesia. INSTRUMENT: CF-190 Olympus variable high definition colonoscope. PROCEDURE: Informed consent was obtained prior to performing this procedure. The instrument was introduced into the anus and passed to the rectum under direct visualization. The instrument was then advanced up to the ileal colonic anastomosis. The preparation was fair with abundant irrigation and suctioning allowing adequate visualization of the entire mucosa. The anastomosis was healthy and patent appearing. Sutures were noted. The ileum was intubated and was normal. The scope was slowly withdrawn. Mucosa of the transverse colon and descending colon was normal. In the sigmoid colon, there was a 5 mm polyp removed via jumbo biopsy resection with complete resection and retrieval. Sigmoid diverticulosis was present. In the rectum, there was an additional 5 mm polyp removed via jumbo resection with complete resection and retrieval. Internal hemorrhoids were prominent on direct and retroflex view. Digital exam was normal. The patient tolerated the procedure well and there were no complications. RECOMMENDATIONS: I will notify the patient of pathology results in one week. He should likely, depending on health issues, undergo colonoscopy in three years. No source of iron deficiency noted on colonoscopy. The patient will undergo upper endoscopy. [id number]/[facility] #: [id number] MTDD
--- NOTE | 2017-11-16 22:06 | PRO ---
CC: Vinnie Miranda MD * GASTROENTEROLOGY PROCEDURE REPORT: DATE OF PROCEDURE: 11/16/17 - [facility] REFERRING PHYSICIAN: Vinnie Miranda MD PROCEDURE PERFORMED: EGD with biopsies. PREOPERATIVE DIAGNOSES: Intermittent dysphagia in this 72-year-old male with a history of acid reflux. The patient most recently underwent upper endoscopy in 2014 and was noted to have small distal esophageal varices. No stricture was present at that time. The patient complains of intermittent dysphagia and has iron deficiency anemia. POSTOPERATIVE DIAGNOSES: 1. Grade 1 to 2 distal esophageal varices which flatten with insufflation of air, photograph obtained. 2. Patent distal esophagus without evidence of stricture. There is evidence of some esophagitis at the GE junction. 3. Evidence of portal hypertensive gastropathy of the proximal stomach, photograph obtained. 4. Antral gastritis and duodenitis of the bulb. Biopsy obtained of the antrum for CLOtest for H. pylori. PROCEDURE MEDICATIONS: Per Anesthesia. INSTRUMENT: GF-190 Olympus high definition gastroscope. DESCRIPTION OF PROCEDURE: Informed consent was obtained prior to performing this procedure. The instrument was introduced into the mouth and passed through the cervical esophagus under direct visualization. The instrument was then advanced down the esophagus. In the distal esophagus, there were grade 1 to 2 varices, which flattened with air insufflation. There was evidence of esophagitis at the GE junction without evidence of Barrette's mucosa. The scope was then passed in the gastric cardia, fundus, body, and antrum. There was evidence of portal hypertensive gastropathy in the proximal stomach and evidence of antral gastritis. Biopsy was obtained for H. pylori with CLOtest. The scope was passed through the pylorus and duodenal bulb and descending duodenum. There was evidence of duodenitis within the bulb. The cardia was visualized in a retroflex manner. No other findings noted. The instrument was withdrawn from the patient. The patient tolerated the procedure well and there were no complications. RECOMMENDATIONS: We will increase the patient's omeprazole to 40 mg daily from 20 mg daily. He should stay on this higher dose for at least 3 months. He may restart his Xarelto tomorrow evening. I would consider initiating nadolol 20 mg daily. He is on atenolol at this time. Nadolol may be protective prophylactically in terms of his varices. His iron deficiency anemia may be coming from his gastritis and/or portal hypertensive gastropathy. I have asked him to follow up in the office in 2 months for a followup CBC. He is on iron supplement daily. If there is persistent anemia, I would consider a video capsule endoscopy, which could be arranged through the office. [id number]/[facility] #: [id number] MTDD
== END 2017-11-16 16:10 | disposition home or self-care (01) ==
LOC: OR 10:42
PROVIDERS: ATTEND Internal Medicine
DX: R13.14 Dysphagia, pharyngoesophageal phase (principal); D50.9 Iron deficiency anemia, unspecified; I85.00 Esophageal varices without bleeding; K20.9 Esophagitis, unspecified; D12.5 Benign neoplasm of sigmoid colon; K62.1 Rectal polyp; K31.89 Other diseases of stomach and duodenum; K29.70 Gastritis, unspecified, without bleeding; K29.80 Duodenitis without bleeding; Z86.010 Personal history of colon polyps; K57.30 Diverticulosis of large intestine without perforation or abscess without bleeding; K64.8 Other hemorrhoids; I48.91 Unspecified atrial fibrillation; Z79.899 Other long term (current) drug therapy; R19.7 Diarrhea, unspecified; K76.6 Portal hypertension; Z79.01 Long term (current) use of anticoagulants; I44.7 Left bundle-branch block, unspecified; Z95.0 Presence of cardiac pacemaker; Z95.5 Presence of coronary angioplasty implant and graft
CPT/HCPCS: 87077; 88305; A9270-GY; J1100; J2250; J2405; J2704; J3010

== ENCOUNTER 2018-02-22 14:19 | Emergency (ER) | payer MEDICARE, OTHER ==
--- OUTSIDE RECORDS SUMMARY | 2018-02-22 14:39 | XMS REPORT ---
:1945 External Reference #:[id number] Author Organization [employer] Address [address] [place] [address] Phone [phone] Care Team Providers Name Role Phone Vinnie Miranda MD Primary Care Physician Unavailable Payers Type Date Identification Numbers Payment Provider Subscriber Medicare Primary Policy Number: [id number] Medicare Leon Bishop PayID: [id number] [facility] [address] [place] [address] Problems Date Description Provider Status Onset: 08/06/2014 Chronic ischemic heart disease Leo Kennedy M.D., [facility], Active [facility] Onset: 08/06/2014 Essential hypertension Leo Kennedy M.D., [facility], Active [facility] Onset: 08/06/2014 Hyperlipidemia Leo Kennedy M.D., [facility], Active [facility] Onset: 10/21/2014 Atrial flutter Leo Kennedy M.D., [facility], Active [facility] Onset: 11/25/2014 Atrial fibrillation Leo Kennedy M.D., [facility], Active [facility] Onset: 12/09/2014 Sinus node dysfunction Leo Kennedy M.D., [facility], Active [facility] Onset: 10/02/2015 Chronic obstructive lung disease Sharyn Hopkins MD Active Onset: 10/02/2015 Disorder of lung Sharyn Hopkins MD Active Onset: 10/02/2015 Obstructive sleep apnea syndrome Sharyn Hopkins MD Active Onset: 10/02/2015 Tobacco use Sharyn Hopkins MD Active Onset: 01/28/2016 Paroxysmal atrial fibrillation Leo Kennedy M.D., [facility], Active [facility] Onset: 01/28/2016 Cardiac pacemaker in situ Leo Kennedy M.D., [facility], Active [facility] Onset: 01/29/2016 Tobacco user Sharyn Hopkins MD Active Onset: 05/24/2016 Ex-smoker Sharyn Hopkins MD Active Onset: 12/28/2016 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 Quit 6-12 Cigarettes Daily months, 5-7 times. ETOH Use Currently consumes alcohol 6 beers per day Recreational Drug Use Denies Drug Use Smoking Light tobacco smoker (10 or fewer cigarettes/day) Daily Caffeine Consumes on average 4 cups of regular coffee per day Daily Caffeine Consumes on average 1 soda per day Exercise Type/Frequency Does not exercise Allergies, Adverse Reactions, Alerts Date Description Reaction Status Severity Comments 11/25/2014 Propranolol hallucination active per patient 10/02/2015 Ambien active 07/29/2014 NKDA inactive Medications Medication Date Status Form Strength Qnty SIG Indications Ordering Provider Spiriva Respimat 10/02 Active Aerosol 2.5mcg/Ac 12gm 1 puff J44.9 Sharyn /2018 t inhaled Kellie, daily Brejanet Ellipta 08/01 Active Aerosol 100-25mcg 60uni 1 puff Sharyn /2016 /Inh ts inhaled Kellie daily Amiodarone HCL 07/25 Active Tablets 100mg 90tab 1 tab by s mouth every , day. 200 M.D., MG, generic FACC, form [facility] Pacidrone per pt. 11/15/17 Nebulizer 05/24 Active Kit 1unit 1 unit J44.9 Sharyn Kit/Tubing/Mouth s nebulizatio Kellie, jorge n every 4- MD 6 hours as needed Duoneb 05/24 Active Solution 0.5-2.5(3 540ml 1 unit nebl J44.9 Sharyn /2016 )mg/3ML every 6 Kellie, hours as MD needed Aspir-Low 04/29 Active Tablets 81mg 1 by mouth every day Xarelto 04/02 Active Tablets 15mg 90tab 1 by mouth s every day Rebekah Kennedy, [facility], [facility] Nitrostat 08/06 Active Tablets 0.4mg 25tab 1 tab I25.9 Sub s sublingual Brent, as needed Rebekah, every 5 FAC, mins x 3 [facility] Proair HFA Active Aerosol 108(90Bas 1unit 2 puffs by Unknown /0000 e) s mouth every mcg/Act 4 hours as needed ( pt no longer has Rx) Amlodipine Active Tablets 5mg 90tab 1 by mouth Unknown Besylate /0000 s every day Paroxetine HCL Active Tablets 20mg 30tab 1 by mouth Unknown /0000 s every day Indomethacin Active Capsules 25mg 60cap 1-2 tid prn Unknown /0000 s Hydrochlorothiazid Active Tablets 25mg 90tab 1 by mouth Unknown e /0000 s every day Multivitamins Active Capsules 1 by mouth Unknown /0000 every day Lisinopril Active Tablets 10mg 1/2 tablet Unknown /0000 by mouth every day (updated by Dr. Kennedy 01/10/18) Zetia Active Tablets 10mg take 1 Unknown /0000 tablet at bedtime Simvastatin Active Tablets 10mg take 1 Unknown /0000 tablet at bedtime Flomax Active Capsules 0.4mg 1 by mouth Unknown /0000 every day Bioflex Active Tablets 2 tabs po Unknown /0000 qd Dha Active 2 tabs Unknown /0000 every day Nadolol Active Tablets 20mg 1 by mouth Unknown /0000 every day Pantoprazole Active 40mg one tab Unknown Sodium /0000 daily Pentoxifylline Active 400mg one tab 3 Unknown /0000 times a day Mucinex Active twice a day Unknown /0000 Incruse Ellipta 10/31 Hx Aerosol 62.5mcg/I 30uni 1 Rosibel S. /2017 ak ts inhalation Foster, - daily N.P. 12/10 Prednisone 12/06 Hx Tablets 5mg 14tab 1 tab by J44.9 s mouth every Kellie, - day every 07/19 Nicotine 01/28 Hx Patches 21mg/24HR 30uni 1 patch F17.210 24HR ts over skin Kellie, - every day 07/18 Symbicort 10/01 Hx Aerosol 160-4.5mc 60uni unit puffs J44.9 g/Act ts twice a day Kellie, - 08/01 Atenolol Hx Tablets 25mg 1/2 tab Leo /0000 every other Stefek, - night M.D., 12/10 [facility] Klor-Con Hx Tablets 8Meq 90tab 1 by mouth Unknown /0000 ER s every day - 10/20 Omeprazole Hx Capsules 20mg 30cap 1 by mouth Unknown /0000 DR s every day - 12/10 Symbicort Hx Aerosol 80-4.5mcg 1 puff bid Unknown /0000 /Act - 10/01 Vytorin Hx Tablets 10-10mg 90tab 1 by mouth Unknown /0000 s every night - at bedtime 11/24 Zolpidem Tartrate Hx Tablets 10mg 30tab 1 tab by Unknown /0000 s mouth every - night at 07/29 bedtime needed Nitrostat Hx Tablets 0.4mg 25tab one sl Unknown /0000 Sub s q5min up to - 3 doses as 10/20 Aspirin Ec 00 Hx Tablets 325mg 1 by mouth Unknown /0000 DR every day - 10/20 Osteo Bi-Flex 00 Hx Tablets 1 po qd Unknown Joint And Muscle /0000 - 10/20 Clopidogrel Hx Tablets 75mg 1 by mouth Unknown Bisulfate /0000 every day - 10/20 Aspirin 0000 Hx Tablets 81mg 1 by mouth Unknown /0000 every day - 11/24 Tamsulosin HCL Hx Capsules 0.4mg 1 by mouth Unknown /0000 every day - 11/24 Xarelto 00 Hx Tablets 20mg 1 by mouth Unknown /0000 every day - 04/02 Lorazepam 00/ Hx Tablets 0.5mg as needed Unknown /0000 - 01/26 Propranolol HCL 00 Hx Tablets 10mg 1/2 tab po Unknown /0000 bid if HR - is above 11/24 60bpm Amiodarone HCL 00 Hx Tablets 200mg 45tab 1/2 tab by Leo /0000 s mouth every Stefek, - day M.D., 07/25 FAC, [facility] Colace Hx Capsules 100mg 2 tabs po Unknown /0000 daily - 01/26 Medications Administered in Office Medication Date Status Form Strength Qnty SIG Indications Ordering Provider Inj, Administered Injection Ramogera Rdz Regadenoson, 015 Moises, 0.1 MG M.DManda, [facility], [facility] Technetium TC Administered Injection Ramo Rdz 99M 015 Moises, Tetrofosmin, Rebekah, [facility], Per Unit Dose FASWI Up To 40 Millicuries Immunizations CPT Code Status Date Vaccine Lot # [id number] Given 03/14/2016 Influenza Virus Vaccine, Quadrivalent, Split, Preservative Free Vital Signs Date Vital Result Comment 02/02/2018 Height 67.5 inches 5'7.50" Weight 218.00 lb w/shoes Heart Rate 66 /min BP Systolic Sitting 112 mmHg lue lg cuff BP Diastolic Sitting 62 mmHg lue lg cuff BMI (Body Mass Index) 33.6 kg/m2 Ejection Fraction 30-35% echo 01/25/18 01/10/2018 Height 67.5 inches 5'7.50" Weight 218.00 lb w/ shoes Heart Rate 76 /min BP Systolic Sitting 94 mmHg Lue lg cuff BP Diastolic Sitting 70 mmHg Lue lg cuff BP Systolic Standing 90 mmHg Lue BP Diastolic Standing 66 mmHg Lue Respiratory Rate 16 /min BMI (Body Mass Index) 33.6 kg/m2 Ejection Fraction 55-60% as of 11/12/14 echo 11/15/2017 Height 67.5 inches 5'7.50" Weight 220.25 lb Heart Rate 60 /min BP Systolic Sitting 120 mmHg Rue large cuff BP Diastolic Sitting 60 mmHg Rue large cuff Respiratory Rate 16 /min O2 % BldC Oximetry 95 % On Ra BMI (Body Mass Index) 34.0 kg/m2 10/02/2017 Height 67.5 inches 5'7.50" Weight 224.50 lb Heart Rate 64 /min BP Systolic Sitting 132 mmHg Rue latge cuff BP Diastolic Sitting 82 mmHg Rue latge cuff Respiratory Rate 20 /min O2 % BldC Oximetry 95 % BMI (Body Mass Index) 34.6 kg/m2 09/13/2017 Height 67.5 inches 5'7.50" Heart Rate 76 /min BP Systolic Sitting 100 mmHg BP Diastolic Sitting 60 mmHg Respiratory Rate 16 /min O2 % BldC Oximetry 94 % 07/19/2017 Height 67.5 inches 5'7.50" Weight 215.00 lb Heart Rate 76 /min BP Systolic Sitting 104 mmHg BP Diastolic Sitting 62 mmHg Respiratory Rate 14 /min O2 % BldC Oximetry 92 % BMI (Body Mass Index) 33.2 kg/m2 06/21/2017 Height 67.5 inches 5'7.50" Weight 217.19 lb Heart Rate 68 /min BP Systolic Sitting 126 mmHg BP Diastolic Sitting 62 mmHg Respiratory Rate 16 /min BMI (Body Mass Index) 33.5 kg/m2 02/20/2017 Height 67.5 inches 5'7.50" Weight 221.00 lb Heart Rate 64 /min BP Systolic Sitting 142 mmHg BP Diastolic Sitting 68 mmHg Respiratory Rate 14 /min O2 % BldC Oximetry 97 % BMI (Body Mass Index) 34.1 kg/m2 12/28/2016 Height 67.5 inches 5'7.50" Weight 223.00 lb without shoes Heart Rate 62 /min BP Systolic Sitting 128 mmHg Lue lg cuff BP Diastolic Sitting 60 mmHg Lue lg cuff BP Systolic Standing 120 mmHg Lue lg cuf BP Diastolic Standing 62 mmHg Lue lg cuf Respiratory Rate 16 /min BMI (Body Mass Index) 34.4 kg/m2 11/18/2016 Height 68 inches 5'8" Weight 220.00 lb Heart Rate 65 /min BP Systolic Sitting 126 mmHg BP Diastolic Sitting 60 mmHg Respiratory Rate 14 /min O2 % BldC Oximetry 96 % BMI (Body Mass Index) 33.4 kg/m2 08/24/2016 Height 68 inches 5'8" Weight 214.00 lb Heart Rate 80 /min BP Systolic Sitting 134 mmHg BP Diastolic Sitting 80 mmHg Respiratory Rate 16 /min O2 % BldC Oximetry 97 % BMI (Body Mass Index) 32.5 kg/m2 05/24/2016 Height 68 inches 5'8" Weight 214.00 lb Heart Rate 77 /min BP Systolic 126 mmHg BP Diastolic 70 mmHg Respiratory Rate 14 /min O2 % BldC Oximetry 98 % BMI (Body Mass Index) 32.5 kg/m2 05/02/2016 Height 68 inches 5'8" Weight 214.00 lb per pt Heart Rate 86 /min BP Systolic Sitting 126 mmHg BP Diastolic Sitting 70 mmHg Respiratory Rate 16 /min O2 % BldC Oximetry 96 % BMI (Body Mass Index) 32.5 kg/m2 01/29/2016 Height 68 inches 5'8" Weight 208.00 lb Heart Rate 84 /min BP Systolic Sitting 120 mmHg BP Diastolic Sitting 72 mmHg Respiratory Rate 14 /min O2 % BldC Oximetry 96 % BMI (Body Mass Index) 31.6 kg/m2 01/28/2016 Height 68 inches 5'8" Weight 208.00 lb Heart Rate 82 /min 82 BP Systolic Sitting 116 mmHg right arm, reg cuff BP Diastolic Sitting 76 mmHg right arm, reg cuff BP Systolic Standing 112 mmHg right arm, reg cuff BP Diastolic Standing 70 mmHg right arm, reg cuff Respiratory Rate 16 /min BMI (Body Mass Index) 31.6 kg/m2 Ejection Fraction 55-60% 11/12/14 12/01/2015 Height 68 inches 5'8" Weight 207.38 lb Heart Rate 72 /min BP Systolic 124 mmHg BP Diastolic 84 mmHg Respiratory Rate 14 /min O2 % BldC Oximetry 96 % BMI (Body Mass Index) 31.5 kg/m2 10/02/2015 Height 68 inches 5'8" Weight 207.38 lb Heart Rate 76 /min BP Systolic 128 mmHg BP Diastolic 88 mmHg Respiratory Rate 14 /min O2 % BldC Oximetry 94 % BMI (Body Mass Index) 31.5 kg/m2 Neck Circumference in inches 18 07/30/2015 Height 68 inches 5'8" Weight 209.00 lb Heart Rate 66 /min 68 BP Systolic Sitting 112 mmHg right arm, reg cuff BP Diastolic Sitting 72 mmHg right arm, reg cuff BP Systolic Standing 106 mmHg right arm, reg cuff BP Diastolic Standing 66 mmHg right arm, reg cuff Respiratory Rate 16 /min BMI (Body Mass Index) 31.8 kg/m2 Ejection Fraction 55-60% 11/12/14 02/10/2015 Height 68 inches 5'8" Weight 214.00 lb w/shoes Heart Rate 68 /min 70 BP Systolic Sitting 112 mmHg LA reg cuff BP Diastolic Sitting 78 mmHg LA reg cuff BP Systolic Standing 134 mmHg LA reg cuff BP Diastolic Standing 72 mmHg LA reg cuff Respiratory Rate 14 /min BMI (Body Mass Index) 32.5 kg/m2 Ejection Fraction 55-60 echo 11/12/14 12/30/2014 Height 68 inches 5'8" Weight 205.00 lb Heart Rate 60 /min BP Systolic Sitting 136 mmHg right arm, reg cuff BP Diastolic Sitting 76 mmHg right arm, reg cuff BP Systolic Standing 134 mmHg right arm, reg cuff BP Diastolic Standing 76 mmHg right arm, reg cuff Respiratory Rate 20 /min BMI (Body Mass Index) 31.2 kg/m2 Ejection Fraction 55-60% 11/12/14 12/16/2014 Height 68 inches 5'8" Weight 204.00 lb Heart Rate 54 /min BP Systolic Sitting 114 mmHg left arm, reg cuff BP Diastolic Sitting 70 mmHg left arm, reg cuff BP Systolic Standing 110 mmHg left arm, reg cuff BP Diastolic Standing 70 mmHg left arm, reg cuff Respiratory Rate 16 /min BMI (Body Mass Index) 31.0 kg/m2 Ejection Fraction 55-60% 11/12/14 12/09/2014 Height 68 inches 5'8" Weight 205.00 lb Heart Rate 54 /min 64 BP Systolic Sitting 128 mmHg left arm, reg cuff BP Diastolic Sitting 70 mmHg left arm, reg cuff BP Systolic Standing 130 mmHg left arm, reg cuff BP Diastolic Standing 76 mmHg left arm, reg cuff Respiratory Rate 16 /min BMI (Body Mass Index) 31.2 kg/m2 Ejection Fraction 55-60% 11/12/14 11/25/2014 Height 68 inches 5'8" Weight 201.56 lb with shoes Heart Rate 124 /min 120 sit and stand HR irreg BP Systolic Sitting 118 mmHg LA lg cuff BP Diastolic Sitting 70 mmHg LA lg cuff BP Systolic Standing 124 mmHg La lg cuff BP Diastolic Standing 70 mmHg La lg cuff Respiratory Rate 18 /min BMI (Body Mass Index) 30.6 kg/m2 Ejection Fraction 40-45% date 10/06/14 10/28/2014 Height 68 inches 5'8" Weight 205.00 lb Heart Rate 52 /min 64 BP Systolic Sitting 118 mmHg right arm, reg cuff BP Diastolic Sitting 66 mmHg right arm, reg cuff BP Systolic Standing 116 mmHg right arm, reg cuff BP Diastolic Standing 62 mmHg right arm, reg cuff Respiratory Rate 20 /min BMI (Body Mass Index) 31.2 kg/m2 10/21/2014 Height 68 inches 5'8" Weight 202.00 lb Heart Rate 76 /min 94 BP Systolic Sitting 118 mmHg right arm, reg cuff BP Diastolic Sitting 62 mmHg right arm, reg cuff BP Systolic Standing 92 mmHg right arm, reg cuff BP Diastolic Standing 58 mmHg right arm, reg cuff Respiratory Rate 16 /min BMI (Body Mass Index) 30.7 kg/m2 08/22/2014 Height 68 inches 5'8" Weight 212.00 lb Heart Rate 68 /min 72 BP Systolic Sitting 138 mmHg right arm, reg cuff BP Diastolic Sitting 72 mmHg right arm, reg cuff BP Systolic Standing 136 mmHg right arm, reg cuff BP Diastolic Standing 74 mmHg right arm, reg cuff Respiratory Rate 20 /min BMI (Body Mass Index) 32.2 kg/m2 08/06/2014 Height 68 inches 5'8" Weight 214.00 lb Heart Rate 50 /min 58 BP Systolic 120 mmHg left arm, reg cuff BP Diastolic 72 mmHg left arm, reg cuff BP Systolic Sitting 124 mmHg right arm, reg cuff BP Diastolic Sitting 70 mmHg right arm, reg cuff BP Systolic Standing 126 mmHg right arm, reg cuff BP Diastolic Standing 70 mmHg right arm, reg cuff Respiratory Rate 20 /min BMI (Body Mass Index) 32.5 kg/m2 Results Test Date Test Result H/L Range Note CBC Auto Diff 11/07/2017 White Blood Count 6.8 10^3/uL 3.5-10.8 Red Blood Count 4.98 10^6/uL 4.0-5.4 Hemoglobin 12.3 g/dL Low 14.0-18.0 Hematocrit 38 % Low 42-52 Mean Corpuscular Volume 76 fL Low 80-94 Mean Corpuscular Hemoglobin 25 pg Low 27-31 Mean Corpuscular HGB Conc 33 g/dL 31-36 Red Cell Distribution Width 34 % High 10.5-15 Platelet Count 249 10^3/uL 150-450 Mean Platelet Volume 8.4 um3 7.4-10.4 Abs Neutrophils 4.2 10^3/uL 1.5-7.7 Abs Lymphocytes 1.5 10^3/uL 1.0-4.8 Abs Monocytes 1.0 10^3/uL High 0-0.8 Abs Eosinophils 0.1 10^3/uL 0-0.6 Abs Basophils 0.1 10^3/uL 0-0.2 Abs Nucleated RBC 0 10^3/uL Granulocyte % 61.3 % 38-83 Lymphocyte % 21.3 % Low 25-47 Monocyte % 14.6 % High 0-7 Eosinophil % 1.7 % 0-6 Basophil % 1.1 % 0-2 Nucleated Red Blood Cells % 0.1 Cell Morphology 11/07/2017 Polychromasia 1+ Anisocytosis 2+ Laboratory test finding 11/07/2017 Pathologist Review (SEE NOTE) 1 Laboratory test finding 09/13/2017 C Reactive Protein 1.16 mg/L < 5.00 2 CBC Auto Diff 09/13/2017 White Blood Count 4.9 10^3/uL 3.5-10.8 Red Blood Count 4.45 10^6/uL 4.0-5.4 Hemoglobin 9.2 g/dL Low 14.0-18.0 Hematocrit 29 % Low 42-52 Mean Corpuscular Volume 66 fL Low 80-94 Mean Corpuscular Hemoglobin 21 pg Low 27-31 Mean Corpuscular HGB Conc 31 g/dL 31-36 Red Cell Distribution Width 20 % High 10.5-15 Platelet Count 208 10^3/uL 150-450 Mean Platelet Volume 8 um3 7.4-10.4 Abs Neutrophils 2.7 10^3/uL 1.5-7.7 Abs Lymphocytes 1.2 10^3/uL 1.0-4.8 Abs Monocytes 0.8 10^3/uL 0-0.8 Abs Eosinophils 0.1 10^3/uL 0-0.6 Abs Basophils 0.1 10^3/uL 0-0.2 Abs Nucleated RBC 0 10^3/uL Granulocyte % 54.4 % 38-83 Lymphocyte % 25.2 % 25-47 Monocyte % 16.0 % High 0-7 Eosinophil % 2.9 % 0-6 Basophil % 1.5 % 0-2 Nucleated Red Blood Cells % 0 Cell Morphology 09/13/2017 Microcytosis 2+ Hypochromasia 1+ Laboratory test 09/13/2017 Pathologist Review (SEE NOTE) 3 finding Thyroid Panel 08/29/2017 Free T4 (Free 1.25 ng/dL High 0.61-1.12 4 Thyroxine) Thyroxine 7.56 g/mL 6.09-12.23 5 TSH (Thyroid Stim Horm) 0.72 mcIU/mL 0.34-5.60 6 Laboratory test finding 08/29/2017 Ast (Sgot) 18 U/L 13-39 7 Alt (SGPT) 16 U/L 7-52 8 Alkaline Phosphatase 62 U/L 34-104 9 Total Bilirubin 0.60 mg/dL 0.2-1.0 10 Thyroid Panel 02/20/2017 Free T4 (Free Thyroxine) 1.26 ng/dL High 0.61- 1.12 11 Thyroxine 9.03 g/mL 6.09-12.23 12 TSH (Thyroid Stim Horm) 0.40 mcIU/mL 0.34-5.60 13 Laboratory test finding 02/20/2017 Alt 12 U/L 7-52 14 Ast (Sgot) 17 U/L 13-39 15 Alkaline Phosphatase 70 U/L 34-104 16 Bilirubin Total 0.60 mg/dL 0.2-1.0 17 Laboratory test finding 08/23/2016 Alt 22 U/L 7-52 18 Ast (Sgot) 19 U/L 13-39 19 Alkaline Phosphatase 69 U/L 34-104 20 Thyroid Panel 08/23/2016 Free T4 (Free Thyroxine) 1.26 ng/dL High 0.61- 1.12 21 Thyroxine 10.67 ?g/dL 6.09-12.23 22 TSH (Thyroid Stim Horm) 0.55 mcIU/mL 0.34-5.60 23 Thyroid Panel 01/25/2016 Free T4 (Free Thyroxine) 1.50 ng/dL High 0.61- 1.12 Thyroxine 10.54 ?g/dL 6.09-12.23 TSH (Thyroid Stim Horm) 0.03 ?IU/mL Low 0.34-5.60 Laboratory test finding 01/25/2016 Ast (Sgot) 17 U/L 13-39 Alt (SGPT) 19 U/L 7-52 Alkaline Phosphatase 82 U/L 34-104 Bilirubin Total 0.60 mg/dL 0.2-1.0 Thyroid Panel 07/30/2015 Free T4 (Free Thyroxine) 1.31 ng/mL High 0.61- 1.12 Thyroxine 11.38 ?g/dL 6.09-12.23 TSH (Thyroid Stim Horm) 0.53 ?IU/mL 0.34-5.60 Liver Function Panel 07/30/2015 Total Protein 6.7 g/dL 6.4-8.9 Albumin 4.3 g/dL 3.2-5.2 Globulin 2.4 g/dL 2-4 Albumin/Globulin Ratio 1.8 1-3 Total Bilirubin 0.60 mg/dL 0.2-1.0 Direct Bilirubin 0.10 mg/dL 0.03-0.18 Indirect Bilirubin 0.5 mg/dL 0.3-1.0 Alkaline Phosphatase 67 U/L 34-104 Alt 23 U/L 7-52 Ast 21 U/L 13-39 Pre Cath Panel 12/16/2014 Partial Thrombo Time PTT 37.5 seconds High 26.0- 36.3 CBC Auto Diff 12/16/2014 White Blood Count 6.9 10^3/uL 4.8-10.8 Red Blood Count 4.42 10^6/uL 4.0-5.4 Hemoglobin 13.1 g/dL Low 14.0-18.0 Hematocrit 39 % Low 42-52 Mean Corpuscular Volume 89 fL 80-94 Mean Corpuscular Hemoglobin 30 pg 27-31 Mean Corpuscular HGB Conc 33 g/dL 31-36 Red Cell Distribution Width 15 % 10.5-15 Platelet Count 238 10^3/uL 150-450 Mean Platelet Volume 9 um3 7.4-10.4 Abs Neutrophils 4.1 10^3/uL 1.5-7.7 Abs Lymphocytes 1.9 10^3/uL 1.0-4.8 Abs Monocytes 0.7 10^3/uL 0-0.8 Abs Eosinophils 0.1 10^3/uL 0-0.6 Abs Basophils 0.1 10^3/uL 0-0.2 Abs Nucleated RBC 0 10^3/uL Granulocyte % 59.3 % 38-83 Lymphocyte % 27.5 % 25-47 Monocyte % 10.1 % High 1-9 Eosinophil % 2.1 % 0-6 Basophil % 1.0 % 0-2 Nucleated Red Blood Cells % 0.1 Inr/Protime 12/16/2014 Inr 1.23 High 0.78-1.07 Basic Metabolic Panel 12/16/2014 Sodium 135 mmol/L 133-145 Potassium 4.2 mmol/L 3.5-5.0 Chloride 100 mmol/L Low 101-111 Co2 Carbon Dioxide 29 mmol/L 22-32 Anion Gap 6 mmol/L 2-11 Glucose 86 mg/dL 70-100 Blood Urea Nitrogen 16 mg/dL 6-24 Creatinine 1.26 mg/dL High 0.67-1.17 BUN/Creatinine Ratio 12.7 8-20 Calcium 9.4 mg/dL 8.6-10.3 Egfr Non- 56.4 >60 Egfr 72.6 >60 24 Laboratory test finding 10/22/2014 Alt 16 U/L 7-52 25, 26 Ast 15 U/L 13-39 25, 27 Lipid Profile (Trig/Chol/HDL) 10/22/2014 Triglycerides 227 mg/dL 25, 28 Cholesterol 128 mg/dL 25, 29 HDL Cholesterol 37.6 mg/dL 25, 30 LDL Cholesterol 45 mg/dL 25, 31 Cath Panel 08/11/2014 Activated Partial Thrombo Time 31.5 seconds 24.0- 36.1 CBC Auto Diff 08/11/2014 White Blood Count 6.5 10^3/uL 4.8-10.8 Red Blood Count 4.42 10^6/uL 4.0-5.4 Hemoglobin 14.9 g/dL 14.0-18.0 Hematocrit 43 % 42-52 Mean Corpuscular Volume 98 fL High 80-94 Mean Corpuscular Hemoglobin 34 pg High 27-31 Mean Corpuscular HGB Conc 34 g/dL 31-36 Red Cell Distribution Width 14 % 10.5-15 Platelet Count 206 10^3/uL 150-450 Mean Platelet Volume 8 um3 7.4-10.4 Abs Neutrophils 4.2 10^3/uL 1.5-7.7 Abs Lymphocytes 1.4 10^3/uL 1.0-4.8 Abs Monocytes 0.7 10^3/uL 0-0.8 Abs Eosinophils 0.1 10^3/uL 0-0.6 Abs Basophils 0.1 10^3/uL 0-0.2 Abs Nucleated RBC 0.01 10^3/uL Granulocyte % 64.2 % 38-83 Lymphocyte % 22.2 % Low 25-47 Monocyte % 10.7 % High 1-9 Eosinophil % 2.1 % 0-6 Basophil % 0.8 % 0-2 Nucleated Red Blood Cells % 0.2 Basic Metabolic Panel 08/11/2014 Sodium 136 mmol/L 133-145 Potassium 3.9 mmol/L 3.5-5.0 Chloride 99 mmol/L Low 101-111 Co2 Carbon Dioxide 30 mmol/L 22-32 Anion Gap 7 mmol/L 2-11 Glucose 98 mg/dL 70-100 Blood Urea Nitrogen 13 mg/dL 6-24 Creatinine 1.00 mg/dL 0.67-1.17 BUN/Creatinine Ratio 13.0 8-20 Calcium 9.8 mg/dL 8.6-10.3 Egfr Non- 73.7 >60 Egfr 94.7 >60 32 Inr/Protime 08/11/2014 Inr 0.97 0.85-1.06 1 Microcytic anemia. Mild absolute monocytosis. Reviewed by Mirna Her MD 2 Acute inflammation: >10.00 3 Microcytic anemia with red cell indices suggestive of iron deficiency. Additional studies as clinically warranted. Reviewed by Dr. Diaz. 4 Assess for amiodarone toxicity, copy to Dr. Miranda 5 Assess for amiodarone toxicity, copy to Dr. Miranda 6 Assess for amiodarone toxicity, copy to Dr. Miranda 7 Assess for amiodarone toxicity, copy to Dr. Miranda 8 Assess for amiodarone toxicity, copy to Dr. Miranda 9 Assess for amiodarone toxicity, copy to Dr. Miranda 10 Assess for amiodarone toxicity, copy to Dr. Miranda 11 to be drawn in February 2017 , copy to Dr. Vinine Miranda. Assess for ami odarone drugtoxicity 12 to be drawn in February 2017 , copy to Dr. Vinnie Miranda. Assess for ami odarone drugtoxicity 13 to be drawn in February 2017 , copy to Dr. Vinnie Miranda. Assess for ami odarone drugtoxicity 14 to be drawn in February 2017 , copy to Dr. Vinnie Miranda. Assess for ami odarone drugtoxicity 15 to be drawn in February 2017 , copy to Dr. Vinnie Miranda. Assess for ami odarone drugtoxicity 16 to be drawn in February 2017 , copy to Dr. Vinnie Miranda. Assess for ami odarone drugtoxicity 17 to be drawn in February 2017 , copy to Dr. Vinnie Miranda. Assess for ami odarone drugtoxicity [address] Miranda. Assess for amiodarone induced liver and thyroid di sease [address] Miranda. Assess for amiodarone induced liver and thyroid di sease [address] Miranda. Assess for amiodarone induced liver and thyroid di sease [address] Miranda. Assess for amiodarone induced liver and thyroid di sease [address] Miranda. Assess for amiodarone induced liver and thyroid di sease [address] Miranda. Assess for amiodarone induced liver and thyroid di sease 24 Because ethnic data is not always readily available, this report includes an eGFR for both -Americans and non- Americans. The National Kidney Disease Education Program (NKDEP) does not endorse the use of the MDRD equation for patients that are not between the ages of 18 and 70, are , have extremes of body size, muscle mass, or nutritional status, or are non- or non-. According to the National Kid[employer] Foundation, irrespective of diagnosis, the stage of the disease is based on the level of kidney function: Stage Description GFR(mL/min/1.73 m(2)) 1 Kidney damage with normal or decreased GFR 90 2 Kidney damage with mild decrease in GFR 60-89 3 Moderate decrease in GFR 30-59 4 Severe decrease in GFR 15-29 5 Kidney failure <15 (or dialysis) [address] Miranda [address] Miranda [address] Miranda 28 Desirable <150 Borderline high 150-199 High 200-499 Very High >500 29 Desirable <200 Borderline high 200-239 High >239 30 Low <40 Desirable: 40-60 High: >60 31 Desirable: <100 mg/dL Near Optimal: 100-129 mg/dL Borderline High: 130-159 mg/dL High: 160-189 mg/dL Very High: >189 mg/dL 32 Because ethnic data is not always readily available, this report includes an eGFR for both -Americans and non- Americans. The National Kidney Disease Education Program (NKDEP) does not endorse the use of the MDRD equation for patients that are not between the ages of 18 and 70, are , have extremes of body size, muscle mass, or nutritional status, or are non- or non-. According to the National Kidney Foundation, irrespective of diagnosis, the stage of the disease is based on the level of kidney function: Stage Description GFR(mL/min/1.73 m(2)) 1 Kidney damage with normal or decreased GFR 90 2 Kidney damage with mild decrease in GFR 60-89 3 Moderate decrease in GFR 30-59 4 Severe decrease in GFR 15-29 5 Kidney failure <15 (or dialysis) Procedures Date CPT Code Description Status 02/02/2018 82848 EKG Tracing & Interpretation Completed 01/25/2018 29257 ECHO Transthorasic Realtime 2D W Doppler & Color Flow Completed Hosp 01/10/2018 14823 EKG Tracing & Interpretation Completed 12/22/2017 99289 Pace Maker Eval W/Iterative Adjment Dual Lead Completed 12/22/2017 38771 Pace Maker Eval W/Iterative Adjment Dual Lead Completed 11/16/2017 Colonoscopy Completed 11/16/2017 59493 Colonoscopy Flexible W/Biopsy Completed 11/16/2017 38846 Endoscopy Upper GI Biopsy Completed 11/07/2017 49214 Pulmonary Function><Bronchodil Completed 11/07/2017 36952 Diffusing Capacity Completed 11/07/2017 59110 Plethysmography Determination Lung Volumes & Per Airway Completed Resist 09/05/2017 74359 Pulmonary Function><Bronchodil Completed 09/05/2017 80152 Diffusing Capacity Completed 09/05/2017 20792 Plethysmography Determination Lung Volumes & Per Airway Completed Resist 06/23/2017 60836 Pace Maker Eval W/Iterative Adjment Dual Lead Completed 06/23/2017 63528 Pace Maker Eval W/Iterative Adjment Dual Lead Completed 12/28/2016 43569 EKG Tracing & Interpretation Completed 12/27/2016 13468 Pace Maker Eval W/Iterative Adjment Dual Lead Completed 08/23/2016 70209 Diffusing Capacity Completed 08/23/2016 52692 Plethysmography Determination Lung Volumes & Per Airway Completed Resist 08/23/2016 55319 Pulmonary Function><Bronchodilator Completed 07/22/2016 47145 Pace Maker Eval W/Iterative Adjment Dual Lead Completed 01/28/2016 77927 EKG Tracing & Interpretation Completed 01/27/2016 25487 Pace Maker Eval W/Iterative Adjment Dual Lead Completed 10/25/2015 04866 Polysomnography Sleep Staging 4+ Parameters Completed 10/19/2015 19380 Interrogation Device Eval In Person W/DR Completed Analysis,Single,Dual,Mul 08/05/2015 74995 Spirometry Incl Graphic Record Completed 07/30/2015 48810 EKG Tracing & Interpretation Completed 07/22/2015 85876 Pace Maker Eval W/Iterative Adjment Dual Lead Completed 06/18/2015 12283 EKG, Interpretation Only Completed 02/10/2015 54199 EKG Tracing & Interpretation Completed 01/21/2015 37578 Pace Maker Eval W/Iterative Adjment Dual Lead Completed 12/24/2014 11318 EKG, Interpretation Only Completed 12/23/2014 59872 EEG Recording Awake & Drowsy Completed 12/23/2014 22209 Interrogation Device Eval In Person W/DR Completed Analysis,Single,Dual,Mul 12/23/2014 01010 EKG, Interpretation Only Completed 12/22/2014 80021 EKG, Interpretation Only Completed 12/22/2014 92600 Perm Pacemaker Av Sequential Atrial And Ventricular Completed 12/09/2014 28138 EKG Tracing & Interpretation Completed 11/25/2014 86869 EKG Tracing & Interpretation Completed 10/28/2014 81624 EKG Tracing & Interpretation Completed 10/08/2014 98781 EKG, Interpretation Only Completed 10/07/2014 23030 ECHO Transthorasic Realtime 2D W Doppler & Color Flow Completed Hosp 10/06/2014 83767 EKG, Interpretation Only Completed 10/05/2014 96129 EKG, Interpretation Only Completed 10/04/2014 61977 EKG, Interpretation Only Completed 10/03/2014 41945 EKG, Interpretation Only Completed 10/03/2014 58846 EKG, Interpretation Only Completed 08/13/2014 56986 EKG, Interpretation Only Completed 08/13/2014 36764 Left Heart Cath. Incl S/I Coronaries, Angio S/I V Gram Completed If Done 08/11/2014 89370 ECHO Transthorasic Realtime 2D W Doppler & Color Flow Completed Hosp 08/06/2014 51422 EKG Tracing & Interpretation Completed 07/29/2014 45697 Stress Test Completed 07/29/2014 46842 Myocardial Perfusion Imaging Tomographic (Spect) Completed Multiple Studies Encounters Type Date Location Provider CPT E/M Dx Office Visit 02/02/2018 [facility] Leo Kennedy M.D., 88226 I48.0 11:00a [employer] AT [facility], FSCAI Z95.0 I42.9 I25.10 Office Visit 01/10/2018 1:20p [facility] Leo Kennedy M.D., 97851 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 J44.9 J98.4 G47.33 Office Visit 09/13/2017 10:00a [facility] [place] [address] J44.9 Services Of [employer] Music Teacher F17.210 G47.33 J98.4 Office Visit 07/19/2017 10:00a [facility] [place] [address] J44.9 Services Of [employer] Music [employer] G47.33 E66.09 Office Visit 06/21/2017 9:30a [facility] [place] [address] J44.9 Services Of [employer] Music Teacher G47.33 Z87.891 J98.4 Office Visit 02/20/2017 9:30a [facility] [place] [address] J44.9 Services Of [employer] Music Teacher G47.33 F17.210 Office Visit 12/28/2016 2:00p [facility] Leo Kennedy M.D., 26695 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 [facility], [facility] I48.0 I25.10 F17.210 Office Visit 12/02/2016 10:54a [facility] Corrina Rice, 13919 J44.1 Hospitalists D.OManda I48.0 I25.10 I77.9 Office Visit 12/01/2016 10:53[place], [address] J44.1 Assoc,pc Hospitalists M.DManda I48.0 I25.10 I77.9 Office Visit 11/18/2016 1:00p [facility] Sharyn Hopkins [place] G9695 J44.9 Services Of [employer] G47.33 Z79.899 F17.210 Office Visit 08/24/2016 10:00a [facility] [place] [address] J44.9 Services Of [employer] Music Teacher G47.33 Z87.891 Office Visit 05/24/2016 9:45a [facility] [place] [address] J44.9 Services Of [employer] Music Teacher G47.33 Z87.891 J98.4 Office Visit 05/02/2016 9:30a [facility] [place] [address] J44.9 Services Of [employer] Music Teacher G47.33 F17.210 J98.4 Office Visit 01/29/2016 10:00a [facility] [place] [address] G47.33 Services Of [employer] School Music Teacher J44.9 F17.210 Office Visit 01/28/2016 10:40a [facility] Leo Kennedy M.D., 23378 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[facility], [facility] Z95.0 I25.9 I25.10 Office Visit 12/01/2015 3:15p [facility] [place] [address] J44.9 Services Of [employer] School Music Teacher G47.33 Z72.0 Office Visit 10/02/2015 8:45a [facility] [place] [address] J44.9 Services Of [employer] School Music Teacher Z72.0 J98.4 G47.33 Office Visit 07/30/2015 1:00p [facility] Leo Kennedy M.D., 45860 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 I25.10 J44.9 Z72.0 Office Visit 06/19/2015 3:38p [facility], Rosibel Davila, 60724 Z90.49 Hospitalists N.PManda I25.10 J44.9 Z72.0 Office Visit 06/18/2015 2:51p [facility] Migdalia Segundo, LIVING SKILLS ADVISOR 96847 Z90.49 Assoc,pc Hospitalists I25.10 J44.9 Z72.0 Office Visit 02/10/2015 2:40p [facility] Leo Kennedy M.D., 44678 414.9 [employer] Music Teacher AT [facility], FSCAI 427.31 427.81 V72.81 Office Visit 12/30/2014 1:00p [facility] Of Jaskaran Hihgtower, 06936 512.89 Middle School Music Teacher AT [facility] M.DManda 427.31 427.81 Office Visit 12/26/2014 7:37p [facility] Pr[facility] Sal[facility], 88471 512.89 Hospitalists M.D. 780.2 414.00 V45.01 Office Visit 12/25/2014 7:36p [facility], Corrina Rice, 76580 512.89 Hospitalists D.O. 780.2 414.00 V45.01 Office Visit 12/16/2014 1:15p [facility] Of Jaskaran Hightower, 19102 427.81 [employer] School Music Teacher AT [facility] M.DManda 427.31 Office Visit 12/09/2014 4:00p [facility] Of Leo Kennedy M.D., 13044 414.9 [employer] School Music Teacher AT [facility], FSCAI 401.9 427.32 427.31 427.81 Office Visit 11/25/2014 3:40p [facility] Brandon Kennedy M.D., 06339 414.9 Middle School Music Teacher AT [facility], [facility] 401.9 427.31 427.32 Office Visit 10/28/2014 3:40p [facility] Leo Kennedy M.D., 85150 414.9 [employer] School Music Teacher AT [facility], [facility] 272.4 401.9 427.32 Office Visit 10/21/2014 2:20p [facility] Brandon Kennedy M.D., 66573 427.32 Middle School Music Teacher AT [facility], [facility] 414.9 272.4 401.9 Office Visit 10/07/2014 1:50p [facility] Of Cooper Mohamud, 43739 427.31 [facility] AT [facility] JEAN LAYNE, FSCAI 428.20 Office Visit 10/06/2014 2:25p [facility] Of Cooper Mohamud, 19394 794.31 [facility] AT [facility] , JEAN, FSCAI Office Visit 10/05/2014 7:20a [facility] Mishel Calderón N.P. 18309 414.04 Hospitalists 427.89 272.4 305.00 Office Visit 10/04/2014 1:24p [facility] Of Jaskaran Hightower, 99078 427.31 Yue Welch 414.9 Office Visit 10/04/2014 7:20a [facility] Kelly Chi, 26563 414.04 Assoc,pc N.P. Hospitalists 427.89 272.4 305.00 Office Visit 10/03/2014 1:40p [facility] Leo Kennedy M.D., 37829 794.31 [employer] School Music Teacher AT [facility], FSCAI 427.89 Office Visit 10/03/2014 7[facility] 31460 427.89 Assoc,pc N.P. Hospitalists 414.04 272.4 305.00 Office Visit 08/22/2014 3:20p [facility] Leo Kennedy M.D., 05093 414.9 [employer] School Music Teacher AT [facility], FSCAI 401.9 272.4 Office Visit 08/06/2014 3:20p [facility] Kennedy M.D., 51064 414.9 [employer] School Music Teacher AT [facility], FSC[facility] 401.9 272.4 Plan of Care Future Appointment(s):04/06/2018 10:30 am - Jaskaran Hightower M.D. at [facility]02/15/2018 10:30 am - Leo Kennedy M.D., [facility], [facility] at [facility] AT [facility]03/20/2018 10:30 am - Sharyn Hopkins MD at [facility]02/02/2018 - Leo Kennedy M.D., [facility], FLTYGA71.0 Paroxysmal atrial fibrillationComments:You currently appear to be in normal sinus rhythm. Your pacemaker check from December suggested that hewas spending more time in atrial fibrillation. We need to recheck the thyroid and liverRecommendations:Call us with the current dose of amiodarone.Z95.0 Presence of cardiac pacemakerComments:Your pacemaker is working normally.I42.9 Cardiomyopathy, unspecifiedNew Orders:Stress Test, Pharmacologic Nuclear ( Lexiscan)Comments:Your current echocardiogram suggests that your heart's pumping ability has gotten worse.Referral:Aaron Remy MD FACC, Cardiology/Spec/ TechRecommendations:We will start beginning a stress test to make sure there's been no significant change in blood flow to the heart muscle. We may need to consider stronger antiarrhythmic therapy for your atrial fibrillation or possibly other techniques to deal with the atrial fibrillation. We may need to consider upgrading your pacemaker to make the heart pump more efficiently.I25.10 Athscl heart disease of [place] coronary artery w/o ang pctrsComments:You currently do not have any significant symptoms of progressive coronary artery disease, although yuor chronic shortness of breath and decreased LV systolic function may raise the issue of progression of disease.Recommendations:We will perform the lexiscan stress test to reassess your coronary artery blood flow.
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
--- NOTE | 2018-02-22 15:53 | RAD ---
Indication: Left rib pain. 3 views of left ribs are reviewed. There is no fracture or dislocation. Dual energy PA views of the chest demonstrates no pneumothorax. IMPRESSION: No fracture of left ribs is noted. No pneumothorax is noted.
[2018-02-22 16:39] VITALS: BP 137/80
== END 2018-02-22 16:39 | disposition home or self-care (01) ==
LOC: ED 14:19
DX: R07.9 Chest pain, unspecified (principal); R07.81 Pleurodynia; V89.2XXA Person injured in unspecified motor-vehicle accident, traffic, initial encounter; Y92.410 Unspecified street and highway as the place of occurrence of the external cause; H93.11 Tinnitus, right ear; H61.21 Impacted cerumen, right ear; J44.9 Chronic obstructive pulmonary disease, unspecified; I25.10 Atherosclerotic heart disease of native coronary artery without angina pectoris; F17.210 Nicotine dependence, cigarettes, uncomplicated; Z95.0 Presence of cardiac pacemaker; Z95.5 Presence of coronary angioplasty implant and graft; Z95.1 Presence of aortocoronary bypass graft; Z88.8 Allergy status to other drugs, medicaments and biological substances
CPT/HCPCS: 69210; 99282

== ENCOUNTER 2018-02-26 04:28 | Emergency (ER) | payer MEDICARE ==
[2018-02-26] MEDS ORDERED: NS 0.9% 1000 ML* 1,000 ML IV ONE (04:46)
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
[2018-02-26 05:15] LABS: ABS Basophils 0.1 10^3/ul (0-0.2); ABS Eosinophils 0.1 10^3/ul (0-0.6); ABS Lymphocytes 1.4 10^3/ul (1.0-4.8); ABS Monocytes 0.8 10^3/ul (0-0.8); ABS Nucleated RBC 0 10^3/ul; Eosinophil % 1.3 % (0-6); Hematocrit 40 % (42-52); Hemoglobin 13.9 g/dl (14.0-18.0); Lymphocyte % 16.7 % (25-47); Mean Corpuscular HGB Conc 35 g/dl (31-36); Mean Corpuscular Hemoglobin 33 pg (27-31); Mean Corpuscular Volume 94 fL (80-94); Mean Platelet Volume 8.1 um3 (7.4-10.4); Nucleated Red Blood Cells % 0.1; Platelet Count 233 10^3/ul (150-450); Red Blood Count 4.23 10^6/ul (4.00-5.40); Red Cell Distribution Width 16 % (10.5-15); White Blood Count 8.3 10^3/ul (3.5-10.8)
[2018-02-26] MEDS ORDERED: Ondansetron INJ* 2 MG/ML VIAL IV ONE (05:20)
[2018-02-26] MEDS ORDERED: Morphine INJ* 2 MG/ML 1 ML SYRINGE (TWO MG - NEW SYRINGE VERSION) IV ONE ×2 (05:20→06:54)
[2018-02-26] MEDS ORDERED: Levofloxacin 750 MG IVPREMIX(* 750 MG/150 ML BAG IVPB ONE (05:21)
[2018-02-26] MEDS ORDERED: Morphine INJ* 2 MG/ML 1 ML SYRINGE (TWO MG - NEW SYRINGE VERSION) ONE ×2 (05:22→06:57)
[2018-02-26] MEDS ORDERED: Iodixanol* (CONTRAST) 320 MG/ML 100 ML SDV IV ONE (05:22)
[2018-02-26 05:23] LABS: INR 1.06 (0.77-1.02)
[2018-02-26] MEDS ORDERED: Albuterol/Ipratropium NEB.SOL* Albuterol 2.5 MG/Ipratropium 0.5 MG 3 ML INH ONE (05:23)
[2018-02-26 05:32] LABS: EGFR Non-African American 61.4 (>60)
[2018-02-26] MEDS: Albuterol 2.5 MG/3 ML NEB.SOL* (0.083%) INH SCH ×2 (05:59→06:06)
[2018-02-26 06:24] LABS: ABS Basophils 0.1 10^3/ul (0-0.2); ABS Eosinophils 0.1 10^3/ul (0-0.6); ABS Monocytes 0.9 10^3/ul (0-0.8); ABS Neutrophils 7.7 10^3/ul (1.5-7.7); ABS Nucleated RBC 0 10^3/ul; Eosinophil % 0.6 % (0-6); Hematocrit 32 % (42-52); Hemoglobin 11.1 g/dl (14.0-18.0); Lymphocyte % 10.2 % (25-47); Mean Corpuscular HGB Conc 35 g/dl (31-36); Mean Corpuscular Hemoglobin 33 pg (27-31); Mean Corpuscular Volume 94 fL (80-94); Mean Platelet Volume 7.7 um3 (7.4-10.4); Nucleated Red Blood Cells % 0.1; Platelet Count 183 10^3/ul (150-450); Red Blood Count 3.34 10^6/ul (4.00-5.40); Red Cell Distribution Width 16 % (10.5-15); White Blood Count 9.7 10^3/ul (3.5-10.8)
[2018-02-26] MEDS ORDERED: Albuterol 2.5 MG/3 ML NEB.SOL* (0.083%) INH ONE (06:42)
[2018-02-26] MEDS ORDERED: methylPREDNISolone 125 MG* 2 ML VIAL IV ONE (06:52)
[2018-02-26] MEDS ORDERED: Albuterol 2.5 MG/3 ML NEB.SOL* (0.083%) INH SCH (07:00)
[2018-02-26] MEDS ORDERED: Norepinephrine 16MCG/ML IVPRE* 4,000 MCG/250 ML BAG IV ONE (07:23)
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
[2018-02-26] MEDS ORDERED: Norepinephrine 16MCG/ML IVPRE* 4,000 MCG/250 ML BAG IV SCH (08:00)
--- NOTE | 2018-02-26 08:12 | RAD ---
Indication: Shortness of breath. Comparison: CT of the same date. September 13, 2017 chest radiograph. Technique: Upright AP 0645 hours Report: Suboptimal inspiration for this patient compared with the prior exam with resulting mild crowding of the pulmonary markings/subsegmental atelectasis. No pulmonary infiltrate concerning for pneumonia, suspicious focal pulmonary lesion, pleural effusion, or pneumothorax. Median sternotomy wires and RIGHT atrial and RIGHT ventricular level pacemaker leads. Cardiomegaly. Unremarkable central pulmonary vasculature. IMPRESSION: #. Suboptimal inspiration for this patient with associated mild subsegmental atelectasis.
--- NOTE | 2018-02-26 08:15 | RAD ---
HISTORY: dissection, generalized abdominal pain, shortness of breath, subacute trauma COMPARISONS: CT of the chest dated June 27, 2017 TECHNIQUE: Multiple contiguous axial CT scans were obtained of the chest, abdomen, and pelvis after the administration of intravenous contrast. Coronal and sagittal multiplanar reformations are submitted for review.. Oral contrast was not administered. 3-D volumetric reconstructions are also submitted of the aorta. FINDINGS: CHEST NECK AND THYROID: The lower neck and thyroid are unremarkable. CHEST WALL: There is no lower cervical, axillary, or supraclavicular lymphadenopathy by size criteria. Left-sided pacemaker is noted. HEART AND PERICARDIUM: Coronary and valvular cardiac calcifications are noted. AORTA AND PULMONARY VASCULATURE: There is calcification of the thoracic aorta. The pulmonary vasculature is unremarkable. MEDIASTINUM: There is no mediastinal lymphadenopathy by size criteria. JUAN ALBERTO: There is no hilar lymphadenopathy by size criteria. AIRWAY AND ESOPHAGUS: There is stable mild bronchiectasis with peribronchial vascular thickening along the lower lungs. There is patchy ground less opacification of the periphery of the right upper lobe. This measures up to 2.8 cm in size. This is not seen on the previous examination. LUNG PARENCHYMA: The lungs are clear. PLEURA: No pleural abnormalities are noted. BONES AND SOFT TISSUES: The patient is status post median sternotomy. There is remote rib fractures. There are acute minimally displaced fractures of the left sixth and seventh ribs. ABDOMEN/PELVIS: LIVER: The liver is normal in shape, size, contour, and attenuation. BILE DUCTS: There is no intrahepatic or extrahepatic biliary dilatation. GALLBLADDER: The gallbladder is normal, without pericholecystic inflammatory change. PANCREAS: The pancreas is normal, without mass or ductal dilatation. SPLEEN: There is extensive hemoperitoneum around the spleen. The spleen parenchyma is not well visualized given the presence of blood that appears to be disrupted with multiple lacerations. UPPER GI TRACT: Evaluation of the gastrointestinal tract is limited by incomplete gastric distention. The upper GI tract is unremarkable. SMALL BOWEL & MESENTERY: The small bowel is normal in contour, course, and caliber. There is no obstruction or dilatation. COLON: There are multiple diverticula of the distal colon. There is no pericolonic inflammatory change. The patient is status post partial colectomy. ADRENALS: There are adrenal calcifications bilaterally. KIDNEYS: Left kidney is atrophic. There is no appreciable hydronephrosis or nephrolithiasis. BLADDER: The bladder is smooth in contour. PELVIC ORGANS: The prostate gland is normal. The seminal vesicles are symmetric. AORTA: There is calcific atherosclerotic disease of the abdominal aorta and its branches, without aneurysmal dilatation IVC: Unremarkable LYMPH NODES: There is no lymphadenopathy by size criteria. ABDOMINAL WALL: There is no evidence for abdominal wall hernia. BONES AND SOFT TISSUES: Degenerative changes are noted along the spine. OTHER: As noted above, there is a moderate amount of hemoperitoneum IMPRESSION: 1. SPLENIC DISRUPTION WITH PERISPLENIC HEMATOMA AND ASSOCIATED HEMOPERITONEUM. 2. ATHEROSCLEROSIS. NO AORTIC DISSECTION. 3. ATROPHIC LEFT KIDNEY. 4. DIVERTICULOSIS. PRELIMINARY FINDINGS WERE DISCUSSED WITH DR. SAMSON BY DR. ESCOTO AT APPROXIMATELY 6:08 AM ON FEBRUARY 27, 2020 R0
[2018-02-26 08:59] VITALS: BP 105/65
== END 2018-02-26 10:43 | disposition short-term general hospital (02) ==
LOC: ED 04:28
DX: S36.09XA Other injury of spleen, initial encounter (principal); S22.42XA Multiple fractures of ribs, left side, initial encounter for closed fracture; V89.2XXA Person injured in unspecified motor-vehicle accident, traffic, initial encounter; Y92.9 Unspecified place or not applicable; J98.4 Other disorders of lung; I77.811 Abdominal aortic ectasia; K86.89 Other specified diseases of pancreas; N26.1 Atrophy of kidney (terminal); I44.7 Left bundle-branch block, unspecified; J44.9 Chronic obstructive pulmonary disease, unspecified; I25.2 Old myocardial infarction; K57.30 Diverticulosis of large intestine without perforation or abscess without bleeding; F17.210 Nicotine dependence, cigarettes, uncomplicated; Z95.5 Presence of coronary angioplasty implant and graft; Z95.810 Presence of automatic (implantable) cardiac defibrillator; Z90.49 Acquired absence of other specified parts of digestive tract; Z88.8 Allergy status to other drugs, medicaments and biological substances
CPT/HCPCS: 36415; 36430; 71045; 71275; 74174; 80053; 82150; 82550; 83605; 83690; 83735; 84484; 85025; 85610; 85730; 86140; 86850; 86900; 86901; 86922; 93005; 96361; 96365; 96375; 96376; 99285; A9270-GY; C9132; J2270; J2405; P9040; Q9967

== ENCOUNTER 2018-12-19 08:10 | Day surgery (SDC) | payer MEDICARE ==
[~2018-12-19 08:10] MED LIST changes: +Acetaminophen TAB* 325 MG PO PRN; -Buffered Lidocaine 0.9% SYRIN* 5 ML/SYR SYRINGE INTRADERM ONE; +Buffered Lidocaine 1% SYRIN* 1 ML/SYRINGE INTRADERM ONE; -Famotidine TAB* 20 MG PO ONE; +mitoMYcin 0.2 MG (0.02%) in Sterile Water for Inj* 1 ML OPHTHALMIC SCH
[2018-12-19] MEDS ORDERED: Propofol* 10 MG/ML 20 ML BTL ONE (10:53)
[2018-12-19] MEDS ORDERED: Lidocaine 2% PF * 5 ML VIAL ONE (10:53)
[2018-12-19 11:08] VITALS: BP 136/70
[2018-12-19] MEDS ORDERED: Povidone Iodine 5% OPTH* 30 ML BTL ONE (11:23)
[2018-12-19] MEDS ORDERED: Lidocaine 1%* 5 ML VIAL ONE (11:23)
[2018-12-19] MEDS ORDERED: Neomycin/Polymy/Dex OPTH.SUSP* MAXITROL 0.1% 5 ML ONE (11:23)
[2018-12-19] MEDS ORDERED: Lidocaine 2% EPI 1:200000 MPF*10-20 ML VIAL ONE (11:23)
[2018-12-19] MEDS ORDERED: Proparacaine 0.5% OPHTH.SOL* 15 ML BTL ONE (11:24)
--- NOTE | 2018-12-19 11:52 | OP ---
OPERATIVE NOTE: DATE OF OPERATION: 12/19/18 DATE OF : 41 SURGEON: Vinnie Villagran MD ANESTHESIA: Local MAC. PREOPERATIVE DIAGNOSIS: Uncontrolled glaucoma, left eye. POSTOPERATIVE DIAGNOSIS: Uncontrolled glaucoma, left eye. OPERATIVE PROCEDURE: Xen stent, left eye. COMPLICATIONS: None. DESCRIPTION OF PROCEDURE: The patient was prepped and draped in the usual sterile fashion. Lid spec ulum placed, 2% lidocaine with epinephrine on the cornea. A paracentesis incision was made with the 75 blade at the 1 o'clock position. Clear corneal incision made at the 4 to 5 o'clock position. Xen stent placed at the 11 o'clock position with its shooter without difficulty. With the anterior bentley dami previously having been filled with Provisc, mitomycin-C 0.2 mg/mL injected near the opening of th e Xen stent. Anterior chamber irrigated with balanced salt solution. [id number] #: [id number]
== END 2018-12-19 11:18 | disposition home or self-care (01) ==
LOC: OREAST 08:10
PROVIDERS: ATTEND Specialist
DX: H40.1122 Primary open-angle glaucoma, left eye, moderate stage (principal); H47.293 Other optic atrophy, bilateral; I10 Essential (primary) hypertension; E78.5 Hyperlipidemia, unspecified; K21.9 Gastro-esophageal reflux disease without esophagitis; Z95.0 Presence of cardiac pacemaker; R25.1 Tremor, unspecified; F17.210 Nicotine dependence, cigarettes, uncomplicated; I25.10 Atherosclerotic heart disease of native coronary artery without angina pectoris; J44.9 Chronic obstructive pulmonary disease, unspecified
CPT/HCPCS: A9270-GY; C1725; J2704; J9280

== ENCOUNTER 2023-09-17 09:21 | Inpatient (IN) ==
[2023-09-17] MEDS: NS 0.9% 1000 ml BAG 1,000 ML IV ONE (10:16)
[2023-09-17 10:29] LABS: Hematocrit 38.7 % (38-53); Hemoglobin 13.2 g/dL (13.2-16.3); Mean Platelet Volume 7.7 fL (7.5-11.2); Platelet Count 309 10^3/uL (150-450); Red Blood Count 4.25 10^6/uL (4.06-5.63); Red Cell Distribution Width 14.4 % (12-17); White Blood Count 16.3 10^3/uL (3.6-10.2)
[2023-09-17 10:57] LABS: ABS Basophils 0.2 10^3/uL (0.0-0.1); ABS Lymphocytes 5.4 10^3/uL (1.0-4.8); ABS Monocytes 1.9 10^3/uL (0.0-1.1); ABS Neutrophils 8.8 10^3/uL (1.5-7.6); ABS Nucleated RBC 0.01 10^3/ul; Lymphocyte % 33.1 %; Nucleated Red Blood Cells % 0.1 %/100WBC (0.0-0.8)
[2023-09-17 11:09] LABS: Albumin 3.8 g/dL (3.2-5.2); Albumin/Globulin Ratio 1.2 (1-3); C Reactive Protein 69.61 mg/L (<8.01); Calcium 9.1 mg/dL (8.6-10.3); Creatinine, Serum 1.06 mg/dL (0.67-1.17); Globulin 3.3 g/dL (2-4); Potassium 4.1 mmol/L (3.5-5.0); Total Bilirubin 1.4 mg/dL (0.2-1.0); Total Protein 7.1 g/dL (6.4-8.9); eGFR CKD-EPI 70.9 (>60)
[2023-09-17] MEDS: cefTRIAXone 1 gm/50 mL D5W 1 GM/50 ML BAG IV ONE (13:43)
[2023-09-17] MEDS: Azithromycin 500 mg/250 ml NS 500 MG/250 ML BAG IVPB ONE (14:03)
[2023-09-17] MEDS: Albuterol/Ipratropium NEB.SOL (2.5/0.5 MG) 3 ML NEB.SOLN INH ONE (18:29)
[2023-09-17] MEDS: Pentoxifylline CR 400 mg TAB 400 MG PO SCH (22:05)
[2023-09-18] MEDS: Enoxaparin 40 MG/0.4 ML SYR SUBCUT SCH ×2 (00:12→06:18)
[2023-09-18 05:14] LABS: Hematocrit 35.5 % (38-53); Hemoglobin 11.8 g/dL (13.2-16.3); Mean Corpuscular Hemoglobin 30.4 pg (27-33); Mean Corpuscular Hgb Conc 33.3 g/dL (31-36); Mean Corpuscular Volume 91.2 fL (80-97); Mean Platelet Volume 7.4 fL (7.5-11.2); Platelet Count 261 10^3/uL (150-450); Red Blood Count 3.89 10^6/uL (4.06-5.63); Red Cell Distribution Width 14.3 % (12-17); White Blood Count 18.2 10^3/uL (3.6-10.2)
[2023-09-18 05:53] LABS: C Reactive Protein 129.56 mg/L (<8.01); Calcium 8.4 mg/dL (8.6-10.3); Creatinine, Serum 1.02 mg/dL (0.67-1.17); Magnesium 1.7 mg/dL (1.9-2.7); Potassium 3.8 mmol/L (3.5-5.0); eGFR CKD-EPI 74.3 (>60)
[2023-09-18 06:38] LABS: ABS Basophils 0.2 10^3/uL (0.0-0.1); ABS Eosinophils 0.1 10^3/uL (0.0-0.5); ABS Lymphocytes 7.9 10^3/uL (1.0-4.8); ABS Monocytes 2.4 10^3/uL (0.0-1.1); ABS Neutrophils 7.6 10^3/uL (1.5-7.6); ABS Nucleated RBC 0.01 10^3/ul; Eosinophil % 0.8 %; Lymphocyte % 43.7 %; Nucleated Red Blood Cells % 0.1 %/100WBC (0.0-0.8)
[2023-09-18] MEDS: Magnesium Sulfate 2 gm BAG 2 GM/50 ML BAG IVPB ONE (08:56)
[2023-09-18] MEDS: Aspirin EC 81 mg TAB.EC (enteric coated) PO SCH (08:58)
[2023-09-18] MEDS: Magnesium Sulfate IV 1GM/100ML 1 GM/100 ML BAG IV ONE (10:38)
[2023-09-18 15:19] LABS: Urine Appearance Clear; Urine Bilirubin Negative (Negative); Urine Blood Trace (Negative); Urine Color Light-Yellow; Urine Glucose Negative (Negative); Urine Ketones Negative (Negative); Urine Nitrite Negative (Negative); Urine Protein Negative (Negative); Urine Specific Gravity 1.011 (1.002-1.030); Urine Urobilinogen Negative (Negative); Urine pH 5.5 (5.0-8.0)
[2023-09-18] MEDS: cefTRIAXone 1 gm/50 mL D5W 1 GM/50 ML BAG IV SCH (15:28)
[2023-09-18] MEDS: Azithromycin 500 mg/250 ml NS 500 MG/250 ML BAG IVPB SCH (16:33)
[2023-09-19 07:01] LABS: Hematocrit 37.6 % (38-53); Hemoglobin 12.6 g/dL (13.2-16.3); Mean Corpuscular Hemoglobin 30.8 pg (27-33); Mean Corpuscular Hgb Conc 33.5 g/dL (31-36); Mean Corpuscular Volume 91.9 fL (80-97); Mean Platelet Volume 7.9 fL (7.5-11.2); Platelet Count 302 10^3/uL (150-450); Red Blood Count 4.09 10^6/uL (4.06-5.63); Red Cell Distribution Width 14.5 % (12-17); White Blood Count 15.1 10^3/uL (3.6-10.2)
[2023-09-19 07:47] LABS: ABS Basophils 0.1 10^3/uL (0.0-0.1); ABS Lymphocytes 6.1 10^3/uL (1.0-4.8); ABS Monocytes 1.5 10^3/uL (0.0-1.1); ABS Neutrophils 7.4 10^3/uL (1.5-7.6); Eosinophil % 0.2 %; Large Platelets Present; Polychromasia 1+
[2023-09-19 08:01] LABS: Albumin 3.5 g/dL (3.2-5.2); Albumin/Globulin Ratio 1.1 (1-3); Creatinine, Serum 0.84 mg/dL (0.67-1.17); Globulin 3.1 g/dL (2-4); Magnesium 2.2 mg/dL (1.9-2.7); Potassium 4.1 mmol/L (3.5-5.0); Total Bilirubin 0.8 mg/dL (0.2-1.0); Total Protein 6.6 g/dL (6.4-8.9); eGFR CKD-EPI 88.2 (>60)
[2023-09-19] MEDS ORDERED: Senna TAB 8.6 mg TAB PO PRN (11:47)
[2023-09-19] MEDS ORDERED: Polyethylene Glycol 3350 17 GM PACKET PO PRN (11:47)
[2023-09-19] MEDS ORDERED: Magnesium Hydroxide LIQ 30 ML UDC PO PRN (11:47)
[2023-09-19] MEDS: ceFAZolin 2 GM in NS PREMIX 2 GM/100 ML BAG IVPB SCH (13:35)
[2023-09-19] MEDS: Magnesium Hydroxide LIQ 30 ML UDC PO SCH (20:11)
[2023-09-19] MEDS: cefTRIAXone 1 gm/50 mL D5W 1 GM/50 ML BAG IV SCH (20:18)
[2023-09-20 05:58] LABS: Hematocrit 36.3 % (38-53); Hemoglobin 12.3 g/dL (13.2-16.3); Mean Corpuscular Volume 91.1 fL (80-97); Mean Platelet Volume 7.7 fL (7.5-11.2); Platelet Count 333 10^3/uL (150-450); Red Blood Count 3.98 10^6/uL (4.06-5.63); Red Cell Distribution Width 14.1 % (12-17); White Blood Count 13.5 10^3/uL (3.6-10.2)
[2023-09-20 06:01] LABS: INR 1.14 (0.83-1.13)
[2023-09-20 06:44] LABS: Albumin 3.3 g/dL (3.2-5.2); Albumin/Globulin Ratio 1.1 (1-3); C Reactive Protein 87.73 mg/L (<8.01); Creatinine, Serum 0.85 mg/dL (0.67-1.17); Globulin 2.9 g/dL (2-4); Magnesium 2.1 mg/dL (1.9-2.7); Potassium 4.5 mmol/L (3.5-5.0); Total Bilirubin 0.5 mg/dL (0.2-1.0); Total Protein 6.2 g/dL (6.4-8.9); eGFR CKD-EPI 87.8 (>60)
[2023-09-20 06:46] LABS: ABS Basophils 0.2 10^3/uL (0.0-0.1); ABS Lymphocytes 6.3 10^3/uL (1.0-4.8); ABS Monocytes 1.3 10^3/uL (0.0-1.1); ABS Neutrophils 5.7 10^3/uL (1.5-7.6); ABS Nucleated RBC 0.02 10^3/ul; Nucleated Red Blood Cells % 0.1 %/100WBC (0.0-0.8)
[2023-09-20 10:35] VITALS: BP 136/67
[2023-09-20] MEDS: cefTRIAXone 1 gm/50 mL D5W 1 GM/50 ML BAG IV SCH (11:26)
[2023-09-20] MEDS: Azithromycin 500 mg/250 ml NS 500 MG/250 ML BAG IVPB ONE (12:24)
== END 2023-09-20 13:40 | disposition home or self-care (01) | DRG 871 ==
LOC: ED 09:21 → EDHOLD 14:06 → SUATTDRO 14:06 → MEDTELE 15:21
PROVIDERS: ADMIT Student in an Organized Health Care Education/Training Program; ATTEND Internal Medicine

== ENCOUNTER 2023-11-28 11:25 | Inpatient (IN) ==
[2023-11-28 12:21] LABS: Hematocrit 41.2 % (38-53); Hemoglobin 13.7 g/dL (13.2-16.3); Mean Corpuscular Hemoglobin 30.4 pg (27-33); Mean Corpuscular Hgb Conc 33.3 g/dL (31-36); Mean Corpuscular Volume 91.3 fL (80-97); Mean Platelet Volume 7.8 fL (7.5-11.2); Platelet Count 343 10^3/uL (150-450); Red Blood Count 4.52 10^6/uL (4.06-5.63); Red Cell Distribution Width 16.2 % (12-17); White Blood Count 17.7 10^3/uL (3.6-10.2)
[2023-11-28 12:39] LABS: Activated Partial Thrombo Time 32.5 seconds (26.0-38.0); INR 1.18 (0.83-1.13)
[2023-11-28] MEDS: Albuterol/Ipratropium NEB.SOL (2.5/0.5 MG) 3 ML NEB.SOLN INH ONE (12:43)
[2023-11-28] MEDS: Dexamethasone IV 4 MG/ML VIAL 1 ml VIAL IV SLOW PU ONE (13:12)
[2023-11-28] MEDS: Cefepime 2 GM in Dextrose 2 GM/50 ML BAG IV ONE (13:14)
[2023-11-28] MEDS: Lactated Ringers 1000 ml BAG 1,000 ML IV ONE ×3 (13:40→20:47)
[2023-11-28 13:45] LABS: Albumin 3.9 g/dL (3.2-5.2); Albumin/Globulin Ratio 1.1 (1-3); C Reactive Protein 130.48 mg/L (<8.01); Calcium 9.9 mg/dL (8.6-10.3); Creatinine, Serum 2.13 mg/dL (0.67-1.17); Globulin 3.4 g/dL (2-4); Potassium 4.8 mmol/L (3.5-5.0); Total Bilirubin 1.4 mg/dL (0.2-1.0); Total Protein 7.3 g/dL (6.4-8.9); eGFR CKD-EPI 30.7 (>60)
[2023-11-28] MEDS: Ciprofloxacin 400mg IVPREMIX 400 MG/200 ML BAG IVPB ONE (13:46)
[2023-11-28 13:54] LABS: High Sensitivity Troponin 1 Hr 10 pg/mL (<20)
[2023-11-28 14:26] LABS: ABS Basophils 0.1 10^3/uL (0.0-0.1); ABS Eosinophils 0.2 10^3/uL (0.0-0.5); ABS Lymphocytes 9.3 10^3/uL (1.0-4.8); ABS Neutrophils 6.1 10^3/uL (1.5-7.6); ABS Nucleated RBC 0.02 10^3/ul; Lymphocyte % 52.7 %; Nucleated Red Blood Cells % 0.1 %/100WBC (0.0-0.8)
[2023-11-28] MEDS ORDERED: Zosyn per Pharmacy NOTE FOLLOW UP SCH (17:00)
[2023-11-28] MEDS: Azithromycin 500 mg/250 ml NS 500 MG/250 ML BAG IVPB SCH (17:15)
[2023-11-28] MEDS: Enoxaparin 30 MG/0.3 ML SYR SUBCUT SCH (17:16)
[2023-11-28 17:45] LABS: Urine Appearance Clear; Urine Bilirubin Negative (Negative); Urine Blood Negative (Negative); Urine Color Yellow; Urine Glucose Negative (Negative); Urine Ketones Negative (Negative); Urine Nitrite Negative (Negative); Urine Protein Negative (Negative); Urine Specific Gravity 1.012 (1.002-1.030); Urine Urobilinogen Negative (Negative)
[2023-11-28] MEDS: Albuterol/Ipratropium NEB.SOL (2.5/0.5 MG) 3 ML NEB.SOLN INH SCH (20:25)
[2023-11-28] MEDS: ZOSYN 3.375 GM x ONE DOSE over 30 miuntes IV (20:29)
[2023-11-28] MEDS: CMCS: Simvastatin 10 mg TAB (NF) PO SCH (22:32)
[2023-11-28] MEDS: Pentoxifylline CR 400 mg TAB 400 MG PO SCH (22:32)
[2023-11-29] MEDS: ZOSYN 3.375 GM Q8H per EXTENDED INFUSION IV SCH (01:32)
[2023-11-29 06:17] LABS: Hematocrit 36.9 % (38-53); Hemoglobin 12.3 g/dL (13.2-16.3); Mean Corpuscular Hemoglobin 30.5 pg (27-33); Mean Corpuscular Hgb Conc 33.5 g/dL (31-36); Mean Corpuscular Volume 91.2 fL (80-97); Platelet Count 322 10^3/uL (150-450); Red Blood Count 4.04 10^6/uL (4.06-5.63); Red Cell Distribution Width 16.2 % (12-17); White Blood Count 7.9 10^3/uL (3.6-10.2)
[2023-11-29 06:50] LABS: Albumin 3.4 g/dL (3.2-5.2); Albumin/Globulin Ratio 1.2 (1-3); Calcium 9.3 mg/dL (8.6-10.3); Creatinine, Serum 1.57 mg/dL (0.67-1.17); Globulin 2.8 g/dL (2-4); Phosphorus 3.4 mg/dL (2.5-5.0); Total Bilirubin 0.9 mg/dL (0.2-1.0); Total Protein 6.2 g/dL (6.4-8.9); eGFR CKD-EPI 44.3 (>60)
[2023-11-29] MEDS: Albuterol/Ipratropium NEB.SOL (2.5/0.5 MG) 3 ML NEB.SOLN INH SCH (07:35)
[2023-11-29] MEDS: Aspirin EC 81 mg TAB.EC (enteric coated) PO SCH (09:42)
[2023-11-29] MEDS: Iodixanol (CONTRAST) 320 MG/ML 100 ML SDV IV ONE (18:01)
[2023-11-29] MEDS ORDERED: Albuterol/Ipratropium NEB.SOL (2.5/0.5 MG) 3 ML NEB.SOLN INH PRN (21:52)
[2023-11-30 06:28] LABS: Hematocrit 35.3 % (38-53); Hemoglobin 11.9 g/dL (13.2-16.3); Mean Corpuscular Hemoglobin 30.4 pg (27-33); Mean Corpuscular Hgb Conc 33.7 g/dL (31-36); Mean Corpuscular Volume 90.1 fL (80-97); Platelet Count 351 10^3/uL (150-450); Red Blood Count 3.91 10^6/uL (4.06-5.63); White Blood Count 14.5 10^3/uL (3.6-10.2)
[2023-11-30 06:47] LABS: Calcium 9.1 mg/dL (8.6-10.3); Creatinine, Serum 1.14 mg/dL (0.67-1.17); Potassium 3.9 mmol/L (3.5-5.0)
[2023-12-01 06:12] LABS: Hematocrit 40.8 % (38-53); Hemoglobin 13.5 g/dL (13.2-16.3); Mean Corpuscular Hemoglobin 30.1 pg (27-33); Mean Corpuscular Hgb Conc 33.2 g/dL (31-36); Mean Corpuscular Volume 90.6 fL (80-97); Mean Platelet Volume 7.9 fL (7.5-11.2); Platelet Count 371 10^3/uL (150-450); Red Cell Distribution Width 16.2 % (12-17); White Blood Count 16.7 10^3/uL (3.6-10.2)
[2023-12-01 06:58] LABS: Calcium 9.4 mg/dL (8.6-10.3); Creatinine, Serum 1.07 mg/dL (0.67-1.17); Magnesium 1.4 mg/dL (1.9-2.7); Potassium 4.2 mmol/L (3.5-5.0); Total Protein 6.7 g/dL (6.4-8.9); eGFR CKD-EPI 70.2 (>60)
[2023-12-01] MEDS: Magnesium Sulfate 2 gm BAG 2 GM/50 ML BAG IVPB ONE (10:58)
[2023-12-02 06:57] LABS: Hematocrit 43.4 % (38-53); Hemoglobin 14.3 g/dL (13.2-16.3); Mean Corpuscular Hemoglobin 30.1 pg (27-33); Mean Corpuscular Volume 91.4 fL (80-97); Mean Platelet Volume 7.5 fL (7.5-11.2); Platelet Count 355 10^3/uL (150-450); Red Blood Count 4.75 10^6/uL (4.06-5.63)
[2023-12-02 07:29] LABS: Calcium 9.5 mg/dL (8.6-10.3); Creatinine, Serum 1.07 mg/dL (0.67-1.17); Potassium 4.2 mmol/L (3.5-5.0); eGFR CKD-EPI 70.2 (>60)
[2023-12-02 08:02] LABS: ABS Basophils 0.1 10^3/uL (0.0-0.1); ABS Eosinophils 0.3 10^3/uL (0.0-0.5); ABS Lymphocytes 10.7 10^3/uL (1.0-4.8); ABS Monocytes 1.8 10^3/uL (0.0-1.1); ABS Nucleated RBC 0.01 10^3/ul; C Reactive Protein 14.75 mg/L (<8.01); Eosinophil % 1.8 %; Lymphocyte % 59.6 %; Nucleated Red Blood Cells % 0.1 %/100WBC (0.0-0.8)
[2023-12-02] MEDS: Enoxaparin 40 MG/0.4 ML SYR SUBCUT SCH (17:25)
[2023-12-03 05:55] LABS: Hematocrit 41.7 % (38-53); Hemoglobin 13.9 g/dL (13.2-16.3); Mean Corpuscular Hemoglobin 30.2 pg (27-33); Mean Corpuscular Hgb Conc 33.4 g/dL (31-36); Mean Corpuscular Volume 90.5 fL (80-97); Mean Platelet Volume 7.6 fL (7.5-11.2); Platelet Count 379 10^3/uL (150-450); Red Blood Count 4.61 10^6/uL (4.06-5.63); Red Cell Distribution Width 16.1 % (12-17); White Blood Count 18.5 10^3/uL (3.6-10.2)
[2023-12-03 06:21] LABS: ABS Basophils 0.1 10^3/uL (0.0-0.1); ABS Eosinophils 0.4 10^3/uL (0.0-0.5); ABS Lymphocytes 10.8 10^3/uL (1.0-4.8); ABS Monocytes 1.5 10^3/uL (0.0-1.1); ABS Neutrophils 5.7 10^3/uL (1.5-7.6); ABS Nucleated RBC 0.02 10^3/ul; Eosinophil % 2.2 %; Lymphocyte % 58.5 %; Nucleated Red Blood Cells % 0.1 %/100WBC (0.0-0.8)
[2023-12-03 13:35] VITALS: BP 119/66
== END 2023-12-03 14:55 | disposition home or self-care (01) | DRG 871 ==
LOC: EDHOLD 11:25 → ED 11:25 → SUATTDRO 16:29 → MED 17:49 → SUATTDRO 11-30 11:10
PROVIDERS: ADMIT Internal Medicine; ATTEND Hospitalist